=== PATIENT | male | born 1945 | race Caucasian/White ===

== ENCOUNTER → 2017-07-01 | Outpatient (CLI) | payer OTHER, BC ==
[~2017-07-01] MED LIST: ALFU10TA2 PO; ALT5 PO; ASCO1CAP3 PO; ASPI81TA28 PO; ATEN-173 PO; ATOR80TA PO; BACL10TA PO; CHOL400C7 PO; CYAN100T6 PO; FISHOIL PO; GLC500 PO; HYDR1TAB2 PO; INDO75CA PO; ISOS60TA25 PO; METO-157 PO; MULTTAB58 PO; NITR0.4S UT; NSP500 PO; PRLSR20 PO; PYRI100T2 PO; SERT25TA PO; TRIA0.1C20 TOP
--- NOTE | 2017-07-01 14:51 | DIAGNOSTIC IMAGING REPORT ---
LEFT HIP INJECTION UNDER FLUOROSCOPIC GUIDANCE CLINICAL HISTORY: Degenerative joint disease. Steroid injection. PROCEDURE: The risks, benefits, and alternatives to the procedure were discussed with the patient. Written informed consent was obtained. The patient was placed supine on the fluoroscopy table, and a left hip injection was performed under fluoroscopic guidance. The area was prepped and draped in the usual sterile fashion. The skin and soft tissues anesthetized with local 1% lidocaine. The left hip joint was accessed utilizing a 22-gauge needle, and intra-articular positioning was confirmed by injecting a small volume of Optiray 300. The prescribed dosage of 8 cc of 0.5% bupivacaine and 2 cc of betamethasone was then injected into the joint space. The procedure was well tolerated and without immediate complication. The patient left the department in satisfactory condition. FLUOROSCOPY TIME: 7 seconds. IMPRESSION: Successful steroid injection of the left hip under fluoroscopic guidance. Electronically signed by: Gregor Salmeron M.D. 07/01/2017 2:50 PM Dictated Date/Time: 07/01/2017 2:48 PM
== END | disposition home or self-care (01) ==
LOC: C.RADBC 13:49
PROVIDERS: ATTEND Orthopaedic Surgery
DX: M16.12 Unilateral primary osteoarthritis, left hip (principal)

== ENCOUNTER 2017-09-20 12:16 | Emergency (ER) | payer OTHER, BC ==
[~2017-09-20] VITALS: Ht 182.9 cm; Wt 130.0 kg
[2017-09-20 12:26] VITALS: TEMP 36.6; Ht 182.9 cm; Wt 130.0 kg
--- NOTE | 2017-09-20 13:02 | DIAGNOSTIC IMAGING REPORT ---
R TOE(S) MIN 2 VIEWS CLINICAL HISTORY: right 2nd toe pain trauma. Pain. COMPARISON: None. DISCUSSION: Oblique nondisplaced fracture proximal phalanx second toe. No evidence of dislocation. All remaining osseous structures are unremarkable. Mild localized soft tissue edema IMPRESSION: Nondisplaced fracture base proximal phalanx second toe. The above report was generated using voice recognition software. It may contain grammatical, syntax or spelling errors. Electronically signed by: Abel Killian M.D. 09/20/2017 1:00 PM Dictated Date/Time: 09/20/2017 1:00 PM
--- NOTE | 2017-09-20 13:41 | EMERGENCY ROOM VISIT NOTE ---
History First contact with patient: 12:23 Chief Complaint: TOE PAIN, INJURY Stated Complaint: HURT TOE History of Present Illness The patient is a 72 year old male who presents to the Emergency Room via private vehicle accompanied by female with complaints of "heart toe". The patient states that earlier today around 10:30 AM he was at home, when he accidentally struck the recliner with the right second toe. He notes pain since that time that he rates as a 3-4/10. At rest it is a 0. It is sharp with movement. No radiation of pain. He denies any other injury. Of additional note he states that he is to have a left hip replacement with follow- up scheduled in November with Dr. Oakes. Review of Systems A complete 6-point Review of Systems was discussed with the patient, with pertinent positives and negatives listed in the History of Present Illness. All remaining Review of Systems questions can be considered negative unless otherwise specified. Past Medical/Surgical History Medical Problems: (1) GERD (gastroesophageal reflux disease) (2) Sleep apnea Surgical Problems: (1) History of cardiac cath Social History Smoking Status: Former Smoker Marital Status: Housing Status: lives with significant other Occupation Status: retired Current/Historical Medications Scheduled Alfuzosin Hcl (Uroxatral), 10 MG PO DAILY Ascorbic Acid (Vitamin C), 1 CAP PO DAILY Aspirin (Aspirin Ec), 162 MG PO DAILY Atenolol (Tenormin), 25 MG PO BID Atorvastatin (Lipitor), 80 MG PO DAILY Cholecalciferol (Vitamin D 400 Iu), 400 INTER.UNIT PO BID Cyanocobalamin (Vitamin B12 100 Mcg), 100 MCG PO DAILY Fish Oil ([place]-3), 1,000 MG PO BID Hydrocodone/Acetaminophen 5MG/500MG (Lortab 5MG/500MG), 1 TABLET PO Q6HR PRN Indomethacin Ext Rel (Indocin Ext Rel), 75 MG PO DAILY Isosorbide Mononitrate Ext Rel (Imdur Ext Rel), 60 MG PO QAM Metformin HCL (Glucophage *), 1,000 MG PO BID Metoclopramide (Reglan), 10 MG PO HS Multiple Vitamin (Multivitamin), 1 TAB PO DAILY Niacin Ext Rel (Niaspan Ext Rel), 1,000 MG PO HS Nitroglycerin (Nitrostat), 0.4 MG UT PRN Omeprazole (Prilosec), 20 MG PO DAILY Pyridoxine Hcl (Vitamin B6), 100 MG PO BID Ramipril (Altace *), 7.5 MG PO DAILY Sertraline (Zoloft), 25 MG PO DAILY Triamcinolone Acet 0.1% (Aristocort 0.1%), 1 APPLN TOP BID Scheduled PRN Baclofen (Lioresal), 10 MG PO TID PRN for spasms Physical Exam Vital Signs Date Time Temp Pulse Resp B/P (MAP) Pulse Ox O2 Delivery O2 Flow Rate FiO2 09/20/17 14:01 58 16 159/96 95 09/20/17 12:26 36.6 95 18 195/103 95 Room Air Physical Exam VITAL SIGNS - Vital signs and nursing notes were reviewed. Stable. Hypertensive. GENERAL -72-year-old male appearing his stated age who is in no acute distress. Communicates well with provider and answers questions appropriately. SKIN - Without rashes. Skin overlying the patient's right second toe is unremarkable. No deformity noted. EXTREMITIES - No clubbing or peripheral cyanosis. No pretibial edema present. Tenderness overlying the base of the right second toe. No deformity noted. Skin is intact. Tenderness localized to the base. He is neurovascularly intact distally. No other tenderness of the foot. Medical Decision & Procedures ER Provider Diagnostic Interpretation: R TOE(S) MIN 2 VIEWS CLINICAL HISTORY: right 2nd toe pain trauma. Pain. COMPARISON: None. DISCUSSION: Oblique nondisplaced fracture proximal phalanx second toe. No evidence of dislocation. All remaining osseous structures are unremarkable. Mild localized soft tissue edema IMPRESSION: Nondisplaced fracture base proximal phalanx second toe. The above report was generated using voice recognition software. It may contain grammatical, syntax or spelling errors. Electronically signed by: Abel Killian M.D. 09/20/2017 1:00 PM Dictated Date/Time: 09/20/2017 1:00 PM Medical Decision Patient was seen and evaluated as above in room D4. Review was performed of nursing notes and vital signs. After obtaining a thorough history and physical examination the above work up was performed. He presents with a right second toe injury. X-ray was obtained. Results as above. I agree with radiologist he has a nondisplaced proximal right second toe fracture. This was mike taped to the great toe and he was given a postop shoe. He as well as the female who is present with the patient in the room expresses concern that he is unstable on his feet because now he has a scheduled left hip replacement, right knee pain and now a right second toe fracture. He was offered additional ambulating devices such as a walker and declined. He states that he prefers to use his cane. They asked if we could try and expedite his follow-up with Dr. Oakes for the hip. I informed them that our corrections caseworker will call to see if they are able to schedule a sooner appointment however if not, they are to keep that appointment. They are to follow with orthopedics if the toe pain persists however informed him that this should heal well on its own with the mike tape and splint/postop shoe. He was educated upon worrisome symptoms which to return. Blood pressure improved upon recheck. I believe this is likely secondary to situation. The patient was educated upon management, had questions answered prior to discharge, and was discharged home in good condition. Case was discussed with the attending physician. Medication list reviewed. His blood pressure was elevated I believe secondary to situation. He is to follow with the family doctor. In the evaluation and treatment of this patient the following differential diagnoses were entertained: Fracture, dislocation, among others. Impression Primary Impression: Toe fracture, right Departure Information Dispostion Home / Self-Care Condition GOOD Referrals Mick Galo M.D.(FERNANDO) (PCP) Colton Oakes M.D. Patient Instructions My [facility] Additional Instructions You have been treated in the Emergency Department for a toe fracture. For pain control, you can use the following [id number] medicines: - Regular strength (325mg/tab) Tylenol (acetaminophen) 2 tabs every 4-6 hours as needed. Do not exceed 12 tablets in a 24 hour period. Avoid taking more than 3 grams (3000 mg) of Tylenol per day. This includes any other sources of acetaminophen you may take on a regular basis. If this is a recent injury (<24 hrs), ice can be applied to the area of pain for the first 3 days to help decrease pain and inflammation. The toe should heal well with mike tape to the next toe and the shoe. If this becomes an ongoing problem I recommend follow-up with orthopedics. Please call them if this persists. Return to the Emergency Department if your current symptoms worsen despite treatment course outlined above, or if you develop any of the following symptoms : intractable pain despite aforementioned treatment course or new onset of numbness or tingling of the foot.
[2017-09-20 14:01] VITALS: BP 159/96; PULSE 58; O2SAT 95
--- NOTE | 2017-09-20 14:21 | EMERGENCY ROOM VISIT NOTE ---
ED Visit Note First contact with patient: 12:23 The patient was seen and examined with Tobias Ladd PA-C. I agree with the history, physical and findings. Please see the note for disposition and details.
== END 2017-09-20 14:01 | disposition home or self-care (01) ==
LOC: C.EDB 12:16 → C.EDD 14:01
DX: S92.514A Nondisplaced fracture of proximal phalanx of right lesser toe(s), initial encounter for closed fracture (principal); W22.03XA Walked into furniture, initial encounter; Y92.009 Unspecified place in unspecified non-institutional (private) residence as the place of occurrence of the external cause; K21.9 Gastro-esophageal reflux disease without esophagitis; Z87.891 Personal history of nicotine dependence; Z98.890 Other specified postprocedural states; Z79.82 Long term (current) use of aspirin; Z79.899 Other long term (current) drug therapy

== ENCOUNTER 2022-06-19 09:43 | Inpatient (IN) ==
[2022-06-19] MEDS ORDERED: dexAMETHasone**PF** 10 MG/ML VIAL IV ONE (09:59)
[2022-06-19] MEDS ORDERED: SODIUM CHLORIDE 0.9% 1000ML 1,000 ML IV ONE (09:59)
[2022-06-19] MEDS ORDERED: METOPROLOL TARTRATE 1 MG/ML VIAL IV STA ×3 (09:59→12:49)
[2022-06-19] MEDS ORDERED: ALBUT/IPRATROP 3MG/0.5MG NEB 3 ML VIAL NEB ONE (09:59)
--- NOTE | 2022-06-19 10:04 | Emergency Department Note ---
Impression & Plan Atrial fibrillation with rapid ventricular response, Complicated acute bronchitis, Persistent cough, Hypomagnesemia ED Provider Note Name: BRADEN MILLER Age: 76 Sex: M Arrives Via: Walk-In Informant: Patient, daughter ED Provider: David Reyna MD Chief Complaint: Illness Impression: As per impressions above Medical Decision Makin-year-old gentleman with history of COPD, PAF, CAD amongst other past medical history arrives for evaluation of worsening cough and congestion and now tachycardia. On arrival patient with diffusely tight lung sounds and wheezing and tachycardic regular rate. He is in A. fib RVR on EKG. He has been sick for the last 2 weeks. Blood cultures and lactic acid obtained. Initial labs not consistent with sepsis. Chest x-ray does not show a large lobar infiltrate. He was given a prolonged DuoNeb with vast improvement in his breathing though still has some wheezing. He is remained quite tachycardic following the DuoNeb even an hour later. He was given 3 rounds of IV Lopressor with mild improvement in his heart rate. He is not having any active chest pain his troponin is normal I do not think that emergent cardioversion is necessary. He was given empiric antibiotics given the cough has been ongoing for over 2 weeks and he has a COPD history thus he is a complicated bronchitis. He is already anticoagulated I do not think that this is consistent with a PE and CTA of the chest would not be indicated. Patient was treated with some IV magnesium given low mag in the setting of persistent A. fib RVR. This was consulted for further management. Patient does not have severe sepsis or septic shock at this time. He was given a liter bolus of IV fluids but given concern for further fluid overload and an elevated BNP no further fluids bolus was given. Prior Medical Record and Triage/Nursing Notes reviewed by Me Chart reviewed by me includes last May as orthopedic evaluations as well as July 2021 pain management evaluation. Differentials:COPD exacerbation, pneumonia, CHF, A. fib RVR, ACS, electrolyte imbalance, viral infection, multiple other pathologies considered. Vital Signs: reviewed and remarkable for tachycardia Interventions: DuoNeb 1 hour, Lopressor 5 mg IV x3, magnesium 1 g IV, 1 L normal saline IV Labs:Reviewed and remarkable for mildly elevated BNP, low magnesium, mild white blood cell count elevation mild below bicarb, hyperglycemia Imagin view chest x-ray reveals no lobar infiltrate as per my interpretation. EKG:Per My Interpretation: Indication Shortness of breath. Atrial fibrillation with rapid ventricular response at 116 bpm and a QTC of 455. There are PVC noted. When compared to an EKG of January 19, 2010 his previous normal sinus rhythm has become A. fib RVR. Cardiac/Tele Monitoring: Cardiac Monitoring: An Order was placed for continuous cardiac monitoring. The monitor shows a rate of 110 with a afib rvr rhythm. Consults:Vikki hospitalist Plan: Disposition:Hospitalization. Condition: Good History of Present Illness:76-year-old gentleman arrives for evaluation of illness. Patient has been sick for the last 2 weeks. Initially with runny nose mild cough which has progressed to feeling short of breath productive cough and generalized aches and pains. Started on prednisone a few days ago. He does have a history of COPD. He has been using inhaler without much improvement. He also has been using cough syrup at evening due to inability even sleep due to the coughing. Symptoms continue to worsen and thus comes into the ER for evaluation. Daughter notes he is making loud wheezing as he walks around the room. No falls, trauma, injuries. Denies any specific chest pain, abdominal pain, back pain, nausea, vomiting, feeling palpitations, urinary/bowel symptoms or other concerning signs or symptoms. Prednisone last few days and breathing treatments have not helped with symptoms. Past History:COPD, PAF on Eliquis, CAD, hypertension, dyslipidemia, APRYL, diabetes, CKD, GERD Home Medications:See Below Allergies:quinalones, sulfa Vitals:Blood Pressure: 146/72, Pulse 122, RR 20, T 37.2C, O2 93% on RA Physical Exam: GENERAL: Patient is tired appearing and in mild distress. EYES: No scleral icterus, unremarkable pupils. ENT: Mucous membranes dry, no nasal congestion. NECK: No masses appreciated, nomeningismus, trachea is midline. RESPIRATORY: Diffusely tight lung sounds with expiratory wheezing and junky crackles throughout the left lung CARDIOVASCULAR: Tachy.No murmurs, rubs, gallops appreciated. GASTROINTESTINAL: Abdomen soft, non-tender, no peritonitis.Bowel sounds positive.No masses appreciated. EXTREMITIES: Normal motion all extremities, no cyanosis, no edema. NEUROLOGIC: Alert and oriented, no focal neurologic deficits appreciated SKIN: No rash, no jaundice, no diaphoresis. PSYCH: Appropriate GCS: 15 ED Course: Times/Reassessments: Patient's heart rate initially improved with initial bolus of Lopressor though started creeping back up following prolonged nebulizer. His breathing is improved though is still quite wheezy. Heart rates continued to increase and thus further Lopressor was given. Patient and his daughter both comfortable plan for his hospitalization. Critical Care: I have personally spent 45 minutes of critical care time in the direct management of this patient. Afib RVR requiring 3 rounds Lopressor IV. This was a life/limb threatening event. This 45 minutes is in excess of all separately billable procedures. David Reyna MD Past Med/Surg History Medical History Anxiety CAD (coronary artery disease) Chronic prostatitis CKD (chronic kidney disease), stage III Diabetes mellitus, type II GERD (gastroesophageal reflux disease) HLD (hyperlipidemia) HTN (hypertension) APRYL on CPAP Permanent atrial fibrillation Sacroiliac joint pain Sleep apnea Spinal stenosis of lumbar region Surgical History History of total left hip arthroplasty S/P coronary artery stent placement "2006" S/P spinal surgery "2000" Family History Father Prostate cancer Stroke Mother Stroke Social History Smoking Status: Never smoker Tobacco Type: Cigarettes packs per day: 20; Hx Alcohol Use: Yes Alcohol type: hard liquor Hx Substance Use: No Preferred Language: Polish Communication Ability: Effective Buckle Stringer Required: No Beliefs That Will Affect Care: None marital status: / Current Living Situation: Alone Other Information That Helps Us Care for You: No Feels Safe at Home: Yes Safety Concerns: Feels Safe At This Time Assistive Devices: Cane and Glasses Allergies Allergies Allergy/AdvReac Type Severity Reaction Status Date / Time Quinolones Allergy Mild difficultly Verified 08/19/21 08:46 breathing Sulfa (Sulfonamide Allergy Mild hives and Verified 08/19/21 08:46 Antibiotics) throat swelling Home Meds Home Medications Medication Instructions Recorded Confirmed alfuzosin 10 mg tablet,extended 10 mg PO DAILY 12/19/20 06/19/22 release 24 hr aspirin 81 mg tablet,delayed 81 mg PO DAILY 12/19/20 06/19/22 release (Adult Aspirin Regimen) atorvastatin 80 mg tablet 80 mg PO DAILY 12/19/20 06/19/22 finasteride 5 mg tablet 5 mg PO DAILY 12/19/20 06/19/22 fluocinonide 0.05 % topical cream 1 applic topical BID 12/19/20 06/19/22 hydrocodone 5 mg-acetaminophen 325 1 tab PO Q6H PRN Pain 12/19/20 06/19/22 mg tablet isosorbide mononitrate 60 mg 60 mg PO DAILY 12/19/20 06/19/22 tablet,extended release 24 hr metformin 500 mg tablet,extended 500 mg PO BID 12/19/20 06/19/22 release 24hr nitroglycerin 0.4 mg sublingual 0.4 mg sublingual Q5M PRN Chest 12/19/20 0 06/19/22 tablet Pain omeprazole 20 mg capsule,delayed 20 mg PO DAILY 12/19/20 06/19/22 release sertraline 50 mg tablet 50 mg PO DAILY 12/19/20 06/19/22 CoQ-10 1 tab PO DAILY 06/19/22 06/19/22 apixaban 5 mg tablet (Eliquis) 5 mg PO BID 06/19/22 06/19/22 cyanocobalamin (vitamin B-12) 1,000 mcg PO DAILY 06/19/22 06/19/22 1,000 mcg tablet dulaglutide 4.5 mg/0.5 mL 4.5 mg subcut WK 06/19/22 06/19/22 subcutaneous pen injector (Trulicity) empagliflozin 25 mg tablet 25 mg PO DAILY 06/19/22 06/19/22 (Jardiance) fexofenadine 180 mg tablet 180 mg PO DAILY PRN Allergic 06/19/22 06/19/22 Symptoms insulin glargine 100 unit/mL (3 15 unit subcut [facility] 06/19/22 06/19/22 mL) subcutaneous pen lisinopril 2.5 mg tablet 2.5 mg PO DAILY 06/19/22 06/19/22 metoprolol succinate 50 mg 50 mg PO DAILY 06/19/22 06/19/22 tablet,extended release 24 hr semaglutide 7 mg tablet (Rybelsus) 7 mg PO DAILY 06/19/22 06/19/22 tiotropium bromide 18 mcg capsule 1 cap inhalation DAILY 06/19/22 06/19/22 with inhalation device (Spiriva with HandiHaler) Results & Data (ED) Vital Signs Vital Signs - 24 hr 06/19/22 09:46 06/19/22 10:34 06/19/22 11:00 Temperature 37.2 C Temperature Source Oral Pulse Rate 122 H 121 H Pulse Rate [Apical] 103 H Respiratory Rate 20 18 Respiratory Effort / Characteristics Non-Labored Respiratory Depth Normal Blood Pressure 146/72 H 145/82 H Blood Pressure [Right Arm] 126/78 Blood Pressure Mean 96 Blood Pressure Mean [Right Arm] 94 Pulse Oximetry 93 95 Oxygen Delivery Method Room Air Room Air Sepsis Recent Fever Within 48 Hours No Sepsis New/Unexplained Change in Mental Status No Sepsis Action Taken by Nursing No Action Required 06/19/22 11:08 06/19/22 12:32 06/19/22 12:45 Temperature Temperature Source Pulse Rate 132 H Pulse Rate [Apical] 104 H 136 H Respiratory Rate 18 16 Respiratory Effort / Characteristics Non-Labored Spontaneous Non-Labored Respiratory Depth Normal Blood Pressure 114/61 Blood Pressure [Right Arm] 121/75 Blood Pressure Mean Blood Pressure Mean [Right Arm] 90 Pulse Oximetry 95 94 Oxygen Delivery Method Room Air Room Air Sepsis Recent Fever Within 48 Hours Sepsis New/Unexplained Change in Mental Status Sepsis Action Taken by Nursing 06/19/22 13:00 Temperature Temperature Source Pulse Rate Pulse Rate [Apical] 126 H Respiratory Rate 16 Respiratory Effort / Characteristics Non-Labored Respiratory Depth Normal Blood Pressure Blood Pressure [Right Arm] 96/64 L Blood Pressure Mean Blood Pressure Mean [Right Arm] 74 Pulse Oximetry 94 Oxygen Delivery Method Room Air Sepsis Recent Fever Within 48 Hours Sepsis New/Unexplained Change in Mental Status Sepsis Action Taken by Nursing Laboratory Data 06/19/22 10:38 06/19/22 10:38 Lab Results 06/19/22 06/19/22 06/19/22 Range/Units 10:38 10:38 10:38 WBC 13.66 H (4.8-10.8) K/ul RBC 4.66 L (4.70-6.10) M/uL Hgb 14.2 (14.0-18.0) g/dl Hct 42.0 (42.0-52.0) % MCV 90.1 (80.0-100.0) fL MCH 30.5 (25.0-34.0) pg MCHC 33.8 (32.0-36.0) g/dL RDW Std Deviation 44.9 (36.4-46.3) fL RDW Coeff of [place] 13.5 (11.5-14.5) % Plt Count 247 (130-400) K/uL MPV 9.6 (9.4-12.4) fL Immature Gran % (Auto) 0.6 % Neut % (Auto) 80.1 % Lymph % (Auto) 5.6 % [place] % (Auto) 13.3 % Eos % (Auto) 0.1 % Baso % (Auto) 0.3 % Neut # (Auto) 10.94 H (1.40-6.50) K/uL Lymph # (Auto) 0.76 L (1.2-3.4) K/uL [place] # (Auto) 1.82 H (0.11-0.59) K/uL Eos # (Auto) 0.02 (0-0.50) K/uL Baso # (Auto) 0.04 (0-0.2) K/uL Immature Gran # (Auto) 0.08 (0.01-0.20) K/uL PT INR Sodium (136-145) mmol/L Potassium (3.5-5.1) mmol/L Chloride (98-107) mmol/L Carbon Dioxide (21-32) mmol/L Anion Gap (3-11) BUN (6-23) mg/dl Creatinine (0.6-1.4) mg/dl Est Cr Clr Drug Dosing ml/min Est GFR ( Amer) ml/min Est GFR (Non-Af Amer) ml/min BUN/Creatinine Ratio (10-20) Glucose (70-99(Fasting)) mg/dl Lactate 1.6 (0.4-2.0) mmol/L Calcium (8.5-10.1) mg/dl Magnesium (1.7-2.4) mg/dl Total Bilirubin (0.2-1.0) mg/dl Direct Bilirubin (0-0.2) mg/dl AST (13-39) U/L ALT (7-52) U/L Alkaline Phosphatase (34-104) U/L Troponin I High Sens (0-20) pg/ml B-Natriuretic Peptide 389 H (0-100) pg/ml Total Protein (6.0-8.3) gm/dl Albumin (3.4-5.0) gm/dl SARS-CoV-2 (PCR) (Negative) Influenza Type A (PCR) (Neg) Influenza Type B (PCR) (Neg) RSV (RT-PCR) (Neg) 06/19/22 06/19/22 06/19/22 Range/Units 10:38 10:38 10:38 WBC (4.8-10.8) K/ul RBC (4.70-6.10) M/uL Hgb (14.0-18.0) g/dl Hct (42.0-52.0) % MCV (80.0-100.0) fL MCH (25.0-34.0) pg MCHC (32.0-36.0) g/dL RDW Std Deviation (36.4-46.3) fL RDW Coeff of [place] (11.5-14.5) % Plt Count (130-400) K/uL MPV (9.4-12.4) fL Immature Gran % (Auto) % Neut % (Auto) % Lymph % (Auto) % [place] % (Auto) % Eos % (Auto) % Baso % (Auto) % Neut # (Auto) (1.40-6.50) K/uL Lymph # (Auto) (1.2-3.4) K/uL [place] # (Auto) (0.11-0.59) K/uL Eos # (Auto) (0-0.50) K/uL Baso # (Auto) (0-0.2) K/uL Immature Gran # (Auto) (0.01-0.20) K/uL PT Cancelled INR Cancelled Sodium 136 (136-145) mmol/L Potassium 3.7 (3.5-5.1) mmol/L Chloride 107 (98-107) mmol/L Carbon Dioxide 17 L (21-32) mmol/L Anion Gap 12 H (3-11) BUN 21 (6-23) mg/dl Creatinine 1.20 (0.6-1.4) mg/dl Est Cr Clr Drug Dosing 67.7 ml/min Est GFR ( Amer) 68.1 ml/min Est GFR (Non-Af Amer) 58.8 ml/min BUN/Creatinine Ratio 17.5 (10-20) Glucose 215 H (70-99(Fasting)) mg/dl Lactate (0.4-2.0) mmol/L Calcium 9.0 (8.5-10.1) mg/dl Magnesium 1.5 L (1.7-2.4) mg/dl Total Bilirubin 1.2 H (0.2-1.0) mg/dl Direct Bilirubin 0.2 (0-0.2) mg/dl AST 14 (13-39) U/L ALT 14 (7-52) U/L Alkaline Phosphatase 60 (34-104) U/L Troponin I High Sens 13.6 (0-20) pg/ml B-Natriuretic Peptide (0-100) pg/ml Total Protein 6.7 (6.0-8.3) gm/dl Albumin 3.7 (3.4-5.0) gm/dl SARS-CoV-2 (PCR) NEGATIVE (Negative) Influenza Type A (PCR) Negative (Neg) Influenza Type B (PCR) Negative (Neg) RSV (RT-PCR) Negative (Neg) 06/19/22 Range/Units 11:18 WBC (4.8-10.8) K/ul RBC (4.70-6.10) M/uL Hgb (14.0-18.0) g/dl Hct (42.0-52.0) % MCV (80.0-100.0) fL MCH (25.0-34.0) pg MCHC (32.0-36.0) g/dL RDW Std Deviation (36.4-46.3) fL RDW Coeff of [place] (11.5-14.5) % Plt Count (130-400) K/uL MPV (9.4-12.4) fL Immature Gran % (Auto) % Neut % (Auto) % Lymph % (Auto) % [place] % (Auto) % Eos % (Auto) % Baso % (Auto) % Neut # (Auto) (1.40-6.50) K/uL Lymph # (Auto) (1.2-3.4) K/uL [place] # (Auto) (0.11-0.59) K/uL Eos # (Auto) (0-0.50) K/uL Baso # (Auto) (0-0.2) K/uL Immature Gran # (Auto) (0.01-0.20) K/uL PT 11.7 INR 1.1 Sodium (136-145) mmol/L Potassium (3.5-5.1) mmol/L Chloride (98-107) mmol/L Carbon Dioxide (21-32) mmol/L Anion Gap (3-11) BUN (6-23) mg/dl Creatinine (0.6-1.4) mg/dl Est Cr Clr Drug Dosing ml/min Est GFR ( Amer) ml/min Est GFR (Non-Af Amer) ml/min BUN/Creatinine Ratio (10-20) Glucose (70-99(Fasting)) mg/dl Lactate (0.4-2.0) mmol/L Calcium (8.5-10.1) mg/dl Magnesium (1.7-2.4) mg/dl Total Bilirubin (0.2-1.0) mg/dl Direct Bilirubin (0-0.2) mg/dl AST (13-39) U/L ALT (7-52) U/L Alkaline Phosphatase (34-104) U/L Troponin I High Sens (0-20) pg/ml B-Natriuretic Peptide (0-100) pg/ml Total Protein (6.0-8.3) gm/dl Albumin (3.4-5.0) gm/dl SARS-CoV-2 (PCR) (Negative) Influenza Type A (PCR) (Neg) Influenza Type B (PCR) (Neg) RSV (RT-PCR) (Neg) Administered Medications Apixaban (Apixaban 5 Mg Tablet) 5 mg PO BID GRACIELA Stop: 07/19/22 20:59 Last Admin: 06/19/22 19:32 Dose: 5 mg Documented By: AMM Fluticasone Propionate (Fluticasone Propionate Na Spr 16 Gm Btl) 2 sprays NA HS GRACIELA Stop: 07/19/22 20:59 Last Admin: 06/19/22 19:31 Dose: 2 sprays Documented By: AMM Guaifenesin (Guaifenesin 600 Mg Tabcr) 600 mg PO Q12 GRACIELA Stop: 07/19/22 20:59 Last Admin: 06/19/22 19:32 Dose: 600 mg Documented By: RAFAEL Guaifenesin/Codeine Phosphate (Guaifenesin/Codeine 200mg/20mg 10ml Udc) 10 ml PO HS [facility] Stop: 07/19/22 20:59 Last Admin: 06/19/22 20:19 Dose: 10 ml Documented By: RAFAEL Insulin Aspart (Insulin Aspart Per Unit) 0 units SC ACHS [facility] Stop: 07/19/22 16:29 Last Admin: 06/19/22 20:12 Dose: 2 units Documented By: RAFAEL Co-signed By: AMRIT Admin: 06/19/22 17:11 Dose: 19 units Documented By: TRESSA Co-signed By: SYDNEE Levalbuterol HCl (Levalbuterol Hcl 0.63 Mg/3 Ml Neb) 0.63 mg NEB Q6R [facility]; Protocol Stop: 07/19/22 18:59 Last Admin: 06/20/22 05:17 Dose: 0.63 mg Documented By: Admin: 06/20/22 00:29 Dose: 0.63 mg Documented By: Admin: 06/19/22 18:07 Dose: 0.63 mg Documented By: AYO Metoprolol Tartrate (Metoprolol Tartrate 1 Mg/Ml Vial) 5 mg IV Q6H PRN PRN Reason: tachycardia, HR > 120 Stop: 07/19/22 15:51 Last Admin: 06/20/22 00:19 Dose: 5 mg Documented By: Admin: 06/20/22 00:16 Dose: 5 mg Documented By: RAFAEL Metoprolol Tartrate (Metoprolol Tartrate 25 Mg Tab) 25 mg PO QID [facility] Stop: 07/19/22 16:59 Last Admin: 06/19/22 19:32 Dose: 25 mg Documented By: Admin: 06/19/22 17:39 Dose: 25 mg Documented By: TRESSA Discontinued Medications Albuterol (Albut/Ipratrop 3mg/0.5mg Neb 3 Ml Vial) 12 ml NEB ONE ONE; Protocol Stop: 06/19/22 10:00 Last Admin: 06/19/22 11:08 Dose: 12 ml Documented By: JOSE F Dexamethasone Sodium Phosphate (DexamethasonePf 10 Mg/Ml Vial) 10 mg IV NOW ONE Stop: 06/19/22 10:00 Last Admin: 06/19/22 10:38 Dose: 10 mg Documented By: LEVON Diltiazem HCl (Diltiazem Hcl 5 Mg/Ml 5 Ml Vial) 15 mg IV NOW STA Stop: 06/20/22 01:36 Last Admin: 06/20/22 01:57 Dose: 15 mg Documented By: RAFAEL Co-signed By: DAISY Sodium Chloride (Nss 1000ml) 1,000 mls @ 999 mls/hr IV .Q1H1M ONE Stop: 06/19/22 10:59 Last Infusion: 06/19/22 13:40 Dose: 0 mls/hr Documented By: Admin: 06/19/22 10:40 Dose: 999 mls/hr Documented By: LEVON Magnesium Sulfate/Dextrose (Magnesium Sulfate / D5w) 1 gm in 100 mls @ 100 mls/hr IV NOW STA Stop: 06/19/22 13:38 Last Infusion: 06/19/22 17:47 Dose: 0 mls/hr Documented By: Admin: 06/19/22 13:34 Dose: 100 mls/hr Documented By: ANJELICA Azithromycin 500 mg/ Dextrose 255 mls @ 125 mls/hr IV ONE ONE Stop: 06/19/22 14:41 Last Infusion: 06/19/22 17:46 Dose: 0 mls/hr Documented By: Admin: 06/19/22 14:05 Dose: 125 mls/hr Documented By: ANJELICA Ceftriaxone Sodium (Rocephin) 2,000 mg in 70 mls @ 140 mls/hr IV NOW STA Stop: 06/19/22 13:08 Last Infusion: 06/19/22 13:40 Dose: 0 mls/hr Documented By: Admin: 06/19/22 12:58 Dose: 140 mls/hr Documented By: ANJELICA Magnesium Sulfate/Dextrose (Magnesium Sulfate / D5w) 1 gm in 100 mls @ 50 mls/hr IV ONE ONE Stop: 06/19/22 17:51 Last Infusion: 06/19/22 19:43 Dose: 0 mls/hr Documented By: Admin: 06/19/22 16:48 Dose: 50 mls/hr Documented By: TRESSA Lactated Ringer's (Lr) 1,000 mls @ 200 mls/hr IV .Q5H ONE Stop: 06/20/22 06:35 Last Infusion: 06/20/22 06:44 Dose: 0 mls/hr Documented By: Admin: 06/20/22 01:57 Dose: 200 mls/hr Documented By: RAFAEL Metoprolol Tartrate (Metoprolol Tartrate 1 Mg/Ml Vial) 5 mg IV NOW STA Stop: 06/19/22 10:00 Last Admin: 06/19/22 10:34 Dose: 5 mg Documented By: Metoprolol Tartrate (Metoprolol Tartrate 1 Mg/Ml Vial) 5 mg IV NOW STA Stop: 06/19/22 12:28 Last Admin: 06/19/22 12:32 Dose: 5 mg Documented By: Metoprolol Tartrate (Metoprolol Tartrate 1 Mg/Ml Vial) 5 mg IV NOW STA Stop: 06/19/22 12:50 Last Admin: 06/19/22 12:58 Dose: 5 mg Documented By: ANJELICA Potassium Chloride (Potassium Chloride Crtab 20 Meq Tabcr) 40 meq PO NOW STA Stop: 06/19/22 13:56 Last Admin: 06/19/22 14:39 Dose: 40 meq Documented By: ANJELICA Imaging Data Radiologist's Impression: Chest X-Ray 06/19/22 10:00 XR chest 1V portable HISTORY: Shortness of breath COMPARISON: Chest 01/19/2010. FINDINGS: The cardiac silhouette remains mildly enlarged. The lungs are clear. No pleural effusions. No pneumothorax. No evidence for pulmonary edema. IMPRESSION: No significant change compared to the prior study. No acute process. ACT 112: Negative or not required by law. Electronically signed by: Chester Coles M.D. 06/19/2022 10:35 AM Discharge Plan Visit Data Chief Complaint: Congestion Stated Complaint: CONGESTION ED Provider: David Reyna Discharge Problem: Atrial fibrillation with rapid ventricular response, Complicated acute bronchitis, Persistent cough, Hypomagnesemia Patient Disposition: Admitted As Inpatient Discharge Instructions Interventions: ED Discharge Assessment Last Done: 06/19/22 14:46
--- NOTE | 2022-06-19 10:37 | XRay Report ---
XR chest 1V portable HISTORY: Shortness of breath COMPARISON: Chest 01/19/2010. FINDINGS: The cardiac silhouette remains mildly enlarged. The lungs are clear. No pleural effusions. No pneumothorax. No evidence for pulmonary edema. IMPRESSION: No significant change compared to the prior study. No acute process. ACT 112: Negative or not required by law. Electronically signed by: Chester Coles M.D. 06/19/2022 10:35 AM
[2022-06-19 10:46] LABS: Basophils # (auto) 0.04 K/uL (0-0.2); Basophils % (auto) 0.3 %; Eosinophils # (auto) 0.02 K/uL (0-0.50); Eosinophils % (auto) 0.1 %; Hemoglobin 14.2 g/dl (14.0-18.0); Immature Granulocytes # (auto) 0.08 K/uL (0.01-0.20); Immature Granulocytes % (auto) 0.6 %; Lymphocytes # (auto) 0.76 K/uL (1.2-3.4); Lymphocytes % (auto) 5.6 %; Mean Corpuscular Hemoglobin 30.5 pg (25.0-34.0); Mean Corpuscular Hgb Conc 33.8 g/dL (32.0-36.0); Mean Corpuscular Volume 90.1 fL (80.0-100.0); Mean Platelet Volume 9.6 fL (9.4-12.4); Monocytes # (auto) 1.82 K/uL (0.11-0.59); Monocytes % (auto) 13.3 %; Neutrophils # (auto) 10.94 K/uL (1.40-6.50); Neutrophils % (auto) 80.1 %; Platelet Count 247 K/uL (130-400); RDW Coefficient of Variation 13.5 % (11.5-14.5); RDW Standard Deviation 44.9 fL (36.4-46.3); Red Blood Count 4.66 M/uL (4.70-6.10); White Blood Count 13.66 K/ul (4.8-10.8)
[2022-06-19 11:16] LABS: Troponin I High Sensitivity 13.6 pg/ml (0-20)
[2022-06-19 11:46] LABS: INR 1.1 (0.9-1.1); Prothrombin Time 11.7 Seconds (9.0-12.0)
[2022-06-19 11:49] LABS: Influenza A virus by PCR Negative (Neg); Influenza B virus by PCR Negative (Neg); RSV by PCR Negative (Neg); SARS CoV2 RNA(COVID-19) Ceph NEGATIVE (Negative)
[2022-06-19 12:29] LABS: Albumin Level 3.7 gm/dl (3.4-5.0); Bilirubin Direct 0.2 mg/dl (0-0.2); Bilirubin,Total 1.2 mg/dl (0.2-1.0); Magnesium 1.5 mg/dl (1.7-2.4); Potassium 3.7 mmol/L (3.5-5.1)
[2022-06-19 12:35] LABS: BUN Creatinine Ratio 17.5 (10-20); Creatinine Clr Calc Pharmacy 67.7 ml/min; Est GFR (African American) 68.1 ml/min; Est GFR (Non-African American) 58.8 ml/min; Total Protein 6.7 gm/dl (6.0-8.3)
[2022-06-19] MEDS ORDERED: MAGNESIUM SULFATE / D5W 1 GM/100 ML BAG IV STA (12:39)
[2022-06-19] MEDS ORDERED: AZITHROMYCIN 500 MG in DEXTROSE 5% 250 ML IV ONE (12:39)
[2022-06-19] MEDS ORDERED: cefTRIAXone SODIUM 2,000 MG/70 ML BAG IV STA (12:39)
--- NOTE | 2022-06-19 13:13 | History & Physical Report ---
Date of Service June 19, 2022 Assessment & Plan (1) COPD exacerbation: (2) Atrial fibrillation with rapid ventricular response: (3) Hypomagnesemia: (4) Diabetes mellitus, type II: (5) CAD (coronary artery disease): (6) HTN (hypertension): (7) APRYL on CPAP: Plan This is a 76-year-old male who has significant past medical history of CAD with history of bare-metal stent to LAD in 2006, HTN, HLD, APRYL on CPAP, COPD, former tobacco abuser, permanent A. fib anticoagulated, insulin-dependent T2DM, CKD stage III, chronic prostatitis who presents to ED secondary to URI symptoms for 10 days. Upper/Lower URI COPD Exacerbation Admit to tele Continue Azithromycin (received 500mg IV in ED), will continue 250mg daily for 4 more days Prednisone 40mg daily x 5 days ( received 3 doses as outpatient) pulmonary toilet with ipratropium nebs, muccinex, flutter valve, incentive spirometer oxygen as needed fluticasone nasal spray at HS levalbuterol q6h avoid albuterol/decongestant products given tachycardia if able Atrial fibrillation with RVR Permanent atrial fibrillation Received 5 mg IV Lopressor x3 in ED Heart rates likely exacerbated by hour-long albuterol as well as outpatient oral prednisone and decongestant products Will monitor closely on telemetry Continue Eliquis and metoprolol succinate, prn IV Lopressor Consult cardiology Recent echo 02/2022 revealed preserved EF of 55%, moderately enlarged left atrium and aortic valve sclerosis keep K > 4 and Mag > 2; replete Hypomagnesemia mag 1.5 received 1g mag sulfate in ED will order 1g additional to maintain mag > 2.0 Leukocytosis no signs of true infection azithromycin 2/2 copd exac likely 2/2 steroids, monitor T2DM, insulin-dependent with hyperglycemia Last A1c 02/2022 was 9.2 Obtain A1c in a.m. Lantus/NovoLog per protocol, consult with pharmacy with use of steroid Hold metformin, Rybelsus, Januvia and Trulicity CAD, hx of PCI to LAD with BMS in 2006 HTN HLD Continue ASA, statin, Imdur, metoprolol and lisinopril No chest pain or shortness of breath Blood pressure on lower side, likely in setting of IV Lopressor Monitor closely CKD -3a bun/cr stable monitor APRYL on CPAP DVT ppx: Eliquis Dispo: pcu 2/2 afib rvr and uncontrolled rates in setting of perm afib FULL CODE PCP: Robi Pt was seen and examined in collaboration with Dr. Hicks, please see addendum A total of 75 minutes were spent with greater than 50% of that time face to face with the patient, personally reviewing all current laboratories, imaging studies, past medication reconciliation, outpatient chart review, and discussion with specialists to collaborate care for the patient with attending. Please see attending documentation for corrections and/or additions. Pt Daughter Allie, , would like updates if not present. History of Present Illness Chief Complaint: URI sx x 10 days. Primary Care Provider: Kartik Rosenbaum DO This is a 76-year-old male who has significant past medical history of CAD with history of bare-metal stent to LAD in 2006, HTN, HLD, APRYL on CPAP, COPD, former tobacco abuser, permanent A. fib anticoagulated, insulin-dependent T2DM, CKD stage III, chronic prostatitis who presents to ED secondary to URI symptoms for 10 days. He was evaluated via telemedicine on 06/16/2022 secondary to URI symptoms that started on 06/09. He does admit to having a fever 100.5, chills, rhinorrhea, postnasal drip, sore throat, productive cough with increased shortness of breath and wheezing Per OP notes. He was diagnosed with a COPD exacerbation started on Mucinex, albuterol, 5 days of prednisone. Due to symptoms not improving he then presented to ED today. In ED patient was found to be in A. fib with RVR. His lab work was significant for leukocytosis at 13.66k,, BUN/creatinine 21 and 1.20, magnesium 1.5, glucose 215 and mildly elevated BNP at 389. His influenza, RSV and SARS-CoV-2 were negative. He did r eceive nebulizer treatment as well as IV dexamethasone. He was also started on ceftriaxone and azithromycin for treatment for community-acquired pneumonia. He does have known history of atrial fibrillation however his rate was uncontrolled in ED. According to nurse he also had an hour-long nebulizer treatment which spiked his heart rates from high 90s to 130s. He did receive 3 doses of IV Lopressor 5 mg. He states he took 4 days of prednisone, Robitussin with, muccinex dm and regular muccinex, APAP & albuterol inhaler. He is taking it tid. He does not feel improved. He also tried tessalon Perles with minimal relief. He complained of chills, chest congestion, prod cough with green sputum, fatigue and SOB. He had a bad night last night. He could not sleep. He c/o choking and coughing. He denies leg edema or orthopnea. He denies chest pain, palpitations, documented fever, sweats, lightheaded, dizziness, n/v/d, abd pain or change in urinary habits. Allergies Allergy/AdvReac Type Severity Reaction Status Date / Time Quinolones Allergy Mild difficultly Verified 08/19/21 08:46 breathing Sulfa (Sulfonamide Allergy Mild hives and Verified 08/19/21 08:46 Antibiotics) throat swelling Home Medications Medication Instructions Recorded Confirmed Type alfuzosin 10 mg tablet,extended 10 mg PO DAILY 12/19/20 06/19/22 History release 24 hr aspirin 81 mg tablet,delayed 81 mg PO DAILY 12/19/20 06/19/22 History release (Adult Aspirin Regimen) atorvastatin 80 mg tablet 80 mg PO DAILY 12/19/20 06/19/22 History finasteride 5 mg tablet 5 mg PO DAILY 12/19/20 06/19/22 History fluocinonide 0.05 % topical cream 1 applic topical BID 12/19/20 06/19/22 History hydrocodone 5 mg-acetaminophen 325 1 tab PO Q6H PRN Pain 12/19/20 06/19/22 History mg tablet isosorbide mononitrate 60 mg 60 mg PO DAILY 12/19/20 06/19/22 History tablet,extended release 24 hr metformin 500 mg tablet,extended 500 mg PO BID 12/19/20 06/19/22 History release 24hr nitroglycerin 0.4 mg sublingual 0.4 mg sublingual Q5M PRN Chest 12/19/20 06/19/22 History tablet Pain omeprazole 20 mg capsule,delayed 20 mg PO DAILY 12/19/20 06/19/22 History release sertraline 50 mg tablet 50 mg PO DAILY 12/19/20 06/19/22 History CoQ-10 1 tab PO DAILY 06/19/22 06/19/22 History apixaban 5 mg tablet (Eliquis) 5 mg PO BID 06/19/22 06/19/22 History cyanocobalamin (vitamin B-12) 1,000 mcg PO DAILY 06/19/22 06/19/22 History 1,000 mcg tablet dulaglutide 4.5 mg/0.5 mL 4.5 mg subcut WK 06/19/22 06/19/22 History subcutaneous pen injector (Trulicity) empagliflozin 25 mg tablet 25 mg PO DAILY 06/19/22 06/19/22 History (Jardiance) fexofenadine 180 mg tablet 180 mg PO DAILY PRN Allergic 06/19/22 06/19/22 History Symptoms insulin glargine 100 unit/mL (3 15 unit subcut AMHS 06/19/22 06/19/22 History mL) subcutaneous pen lisinopril 2.5 mg tablet 2.5 mg PO DAILY 06/19/22 06/19/22 History metoprolol succinate 50 mg 50 mg PO DAILY 06/19/22 06/19/22 History tablet,extended release 24 hr semaglutide 7 mg tablet (Rybelsus) 7 mg PO DAILY 06/19/22 06/19/22 History tiotropium bromide 18 mcg capsule 1 cap inhalation DAILY 06/19/22 06/19/22 History with inhalation device (Spiriva with HandiHaler) Past Med/Surg History Medical History (Updated 06/19/22 @ 14:28 by Xiomara Bertrand PA-C) Anxiety CAD (coronary artery disease) Chronic prostatitis CKD (chronic kidney disease), stage III Diabetes mellitus, type II GERD (gastroesophageal reflux disease) HLD (hyperlipidemia) HTN (hypertension) APRYL on CPAP Permanent atrial fibrillation Sacroiliac joint pain Sleep apnea Spinal stenosis of lumbar region Surgical History (Updated 06/19/22 @ 14:27 by Xiomara Bertrand PA-C) History of total left hip arthroplasty S/P coronary artery stent placement "2006" S/P spinal surgery "2000" Family History (Updated 06/19/22 @ 13:39 by Xiomara Bertrand PA-C) Father Prostate cancer Stroke Mother Stroke Social History (Updated 06/19/22 @ 13:39 by Xiomara L. Zapsky, PA-C) Smoking Status: Former smoker Tobacco Type: Cigarettes packs per day: 20; Hx Alcohol Use: No Hx Substance Use: No Preferred Language: [place] Communication Ability: Effective marital status: / Feels Safe at Home: Yes Review of Systems Review of Systems: All systems reviewed & are unremarkable except as noted in HPI & below Physical Exam Physical Exam: please refer to Dr. Hicks addendum for physical exam findings Results & Data Results & Data ([place]) Vital Signs (Past 12 Hours) Vital Signs Temp Pulse Pulse Resp BP BP Pulse Ox 06/19/22 12:45 136 H 16 121/75 94 06/19/22 12:32 132 H 114/61 06/19/22 11:08 104 H 18 95 06/19/22 11:00 103 H 18 126/78 95 06/19/22 10:34 121 H 145/82 H 06/19/22 09:46 37.2 C 122 H 20 146/72 H 93 O2 Del Method 06/19/22 12:45 Room Air 06/19/22 12:32 06/19/22 11:08 Room Air 06/19/22 11:00 Room Air 06/19/22 10:34 06/19/22 09:46 Room Air Diagnostic Findings Chest X-Ray 06/19/22 10:00 XR chest 1V portable HISTORY: Shortness of breath COMPARISON: Chest 01/19/2010. FINDINGS: The cardiac silhouette remains mildly enlarged. The lungs are clear. No pleural effusions. No pneumothorax. No evidence for pulmonary edema. IMPRESSION: No significant change compared to the prior study. No acute process. ACT 112: Negative or not required by law. Electronically signed by: Chester Coles M.D. 06/19/2022 10:35 AM Medications Administered Medication List Discontinued Medications Albuterol (Albut/Ipratrop 3mg/0.5mg Neb 3 Ml Vial) 12 ml NEB ONE ONE; Protocol Stop: 06/19/22 10:00 Last Admin: 06/19/22 11:08 Dose: 12 ml Documented By: JOSE F Dexamethasone Sodium Phosphate (DexamethasonePf 10 Mg/Ml Vial) 10 mg IV NOW ONE Stop: 06/19/22 10:00 Last Admin: 06/19/22 10:38 Dose: 10 mg Documented By: LEVON Sodium Chloride (Nss 1000ml) 1,000 mls @ 999 mls/hr IV .Q1H1M ONE Stop: 06/19/22 10:59 Last Admin: 06/19/22 10:40 Dose: 999 mls/hr Documented By: LEVON Ceftriaxone Sodium (Rocephin) 2,000 mg in 70 mls @ 140 mls/hr IV NOW STA Stop: 06/19/22 13:08 Last Admin: 06/19/22 12:58 Dose: 140 mls/hr Documented By: ANJELICA Metoprolol Tartrate (Metoprolol Tartrate 1 Mg/Ml Vial) 5 mg IV NOW STA Stop: 06/19/22 10:00 Last Admin: 06/19/22 10:34 Dose: 5 mg Documented By: LEVON Metoprolol Tartrate (Metoprolol Tartrate 1 Mg/Ml Vial) 5 mg IV NOW STA Stop: 06/19/22 12:28 Last Admin: 06/19/22 12:32 Dose: 5 mg Documented By: ANJELICA Metoprolol Tartrate (Metoprolol Tartrate 1 Mg/Ml Vial) 5 mg IV NOW STA Stop: 06/19/22 12:50 Last Admin: 06/19/22 12:58 Dose: 5 mg Documented By: ANJELICA ECG Additional Comments: EKG: Rate 116, afib, qtc 455, no st t wave changes reviewed by me. COVID-19 Results Results COVID-19 Adm Lab Results: RBC 4.66 M/uL (4.70-6.10) L 06/19/22 WBC 13.66 K/ul (4.8-10.8) H 06/19/22 Hgb 14.2 g/dl (14.0-18.0) 06/19/22 Hct 42.0 % (42.0-52.0) 06/19/22 Plt Count 247 K/uL (130-400) 06/19/22 Neutrophils (%) (Auto) 80.1 % 06/19/22 Lymphocytes (%) (Auto) 5.6 % 06/19/22 Monocytes # (Auto) 1.82 K/uL (0.11-0.59) H 06/19/22 Eosinophils # (Auto) 0.02 K/uL (0-0.50) 06/19/22 Immature Granulocyte % (Auto) 0.6 % 06/19/22 Neutrophils # (Auto) 10.94 K/uL (1.40-6.50) H 06/19/22 Lymphocytes # (Auto) 0.76 K/uL (1.2-3.4) L 06/19/22 Monocytes # (Auto) 1.82 K/uL (0.11-0.59) H 06/19/22 Eosinophils # (Auto) 0.02 K/uL (0-0.50) 06/19/22 Basophils # (Auto) 0.04 K/uL (0-0.2) 06/19/22 Immature Granulocyte # (Auto) 0.08 K/uL (0.01-0.20) 3 Na 136 mmol/L (136-145) 06/19/22 K 3.7 mmol/L (3.5-5.1) 06/19/22 Cl 107 mmol/L (98-107) 06/19/22 CO2 17 mmol/L (21-32) L 06/19/22 Anion Gap 12 (3-11) H 06/19/22 BUN 21 mg/dl (6-23) 06/19/22 Creatinine 1.20 mg/dl (0.6-1.4) 06/19/22 BUN/Creatinine Ratio 17.5 (10-20) 06/19/22 Glucose Level 215 mg/dl (70-99(Fasting)) H 06/19/22 Ca 9.0 mg/dl (8.5-10.1) 06/19/22 Total Bilirubin 1.2 mg/dl (0.2-1.0) H 06/19/22 Direct Bilirubin 0.2 mg/dl (0-0.2) 06/19/22 AST/SGOT 14 U/L (13-39) 06/19/22 ALT/SGPT 14 U/L (7-52) 06/19/22 Alkaline Phosphatase 60 U/L (34-104) 06/19/22 Total Protein 6.7 gm/dl (6.0-8.3) 06/19/22 Albumin 3.7 gm/dl (3.4-5.0) 06/19/22 INR 1.1 (0.9-1.1) 06/19/22 COVID-19 PCR NEGATIVE (Negative) 06/19/22 Influenza Virus Type A (PCR) Negative (Neg) 06/19/22 Influenza Virus Type B (PCR) Negative (Neg) 06/19/22 Chest X-Ray 06/19/22 Code Status & VTE Plan Code Status FULL CODE Supervising Physician Co-Signing Physician Notes Pt is a 76 y/o M with hx of CAD s/p stent, Afib on eliquis, IDDM, CKD III, APRYL on CPAP, HTN, COPD, HLD admitted for Afib with RVR and COPD exacerbation Pt was started on prednisone and has been taking mucinex DM for his URI symptoms. Echo from 02/2022: EF 55-59%, LV wall thickness, A flutter on examination, LV normal wall motion, mild mitral regurgitation PE: NAD, well developed Lungs: Good air entry b/l with inspiratory wheezing and b/l rales Cardiac: in afib Abd: ND, NT, soft MSK: no LE edema Psych: AAOx3, normal affect A/P: Afib with RVR: -likely 2/2 recent albuterol use (which was prescribed 3 days ago) + Cough meds with DM -pt received Lopressor & albuterol nebs in the ER -HR ranging from 90-120 but BP was 90s/60s -for now will continue pts home metoprolol dose (ER 50mg daily) and isosorbide mononitrate -admit to tele - trop neg --- recent echo showed normal EF -cardiology consultation COPD exacerbation: -2/2 likely viral URI -COVID/Flu/RSV: neg -will do zpak, prednisone burst, and levoalbuterol q6hr, flutter valve -CXR: no acute process -for now will try mucinex BID with Flonase qhs for cough Other chronic conditions: plan as above Agree with A/P by Xiomara Bertrand PA-C
[2022-06-19] MEDS ORDERED: POTASSIUM CHLORIDE CRTAB 20 MEQ TABCR PO STA (13:55)
[2022-06-19] MEDS ORDERED: MAGNESIUM HYDROXIDE SUSP 30 ML UDC PO PRN (15:52)
[2022-06-19] MEDS ORDERED: DEXTROSE 50% 50 ML SYRINGE IV PRN (15:52)
[2022-06-19] MEDS ORDERED: CARBOHYDRATES FOR HYPOGLYCEMIA PO PRN (15:52)
[2022-06-19] MEDS ORDERED: ONDANSETRON INJ 2 MG/ML 2 ML VIAL IV PRN (15:52)
[2022-06-19] MEDS ORDERED: GLUCOSE 10 TAB/TUBE PO PRN (15:52)
[2022-06-19] MEDS ORDERED: PHARMACY GLYCEMIC MGMT CONSULT PRN (15:52)
[2022-06-19] MEDS ORDERED: GLUCOSE 40% GEL 15 GM TUBE PO PRN (15:52)
[2022-06-19] MEDS ORDERED: MAGNESIUM SULFATE / D5W 1 GM/100 ML BAG IV ONE (15:52)
[2022-06-19] MEDS ORDERED: POLYETHYLENE (MIRALAX) 17 GM PACK PO PRN (15:52)
[2022-06-19] MEDS ORDERED: ALUMINUM/MAGNESIUM SUSP 30 ML UDC PO PRN (15:52)
[2022-06-19] MEDS ORDERED: GLUCAGON FOR INJ 1 MG VIAL SQ PRN (15:52)
[2022-06-19] MEDS ORDERED: LANTUS PER UNIT CHARGE SQ SCH (17:00)
--- NOTE | 2022-06-19 17:06 | Cardiology Consultation ---
Date of Consultation June 19, 2022 Assessment & Plan (1) Permanent atrial fibrillation: - Patient with history of permanent atrial fibrillation, ventricular rates elevated in the setting of respiratory illness. Discontinue metoprolol succinate 50 mg for now, and will treat him with short acting metoprolol tartrate 25 mg 4 times daily during his acute illness. Continue Eliquis 5 mg twice daily for stroke prophylaxis. Treatment of viral respiratory illness, or perhaps complicated bronchitis as per the hospital service. Patient receiving azithromycin, prednisone. Magnesium supplementation previously prescribed by the admitting team for magnesium level of 1.5. History of Present Illness Attending Physician: Oscar Hicks MD History of Present Illness Vadim Corey is a 76-year-old male seen in cardiology consultation per the request of Xiomara Bertrand PA-C and Dr Hicks for the evaluation of atrial fibrillation with rapid ventricular response. The patient's primary transit coach operator is Dr. Khan of our practice. Patient is accompanied by his son, Vasyl, at the bedside. He states that he has had progressive symptoms of fever, productive cough and chills over the last week. Over the last 3 days he has had difficulty sleeping due to ongoing symptoms of chills and productive cough. He has a history of permanent atrial fibrillation which was initially diagnosed in November,. A 7-day potline monitor worn December, revealed continuous atrial fibrillation with average rate of 88 bpm. Today on arrival, he was tachycardic, with ventricular rates in excess of 130 bpm. He has received metoprolol intravenously, 5 mg x 3 doses with improvement in his ventricular rates down to the 100-110 bpm range. He denies any subjective palpitations or chest discomfort that would be characteristic of angina. 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 Persistent atrial fibrillation, diagnosed 12/18/2021 during neurostimulator implant a.[id number] score of 5 (age 3, HTN, DM, CAD) Allergies Allergy/AdvReac Type Severity Reaction Status Date / Time Quinolones Allergy Mild difficultly Verified 08/19/21 08:46 breathing Sulfa (Sulfonamide Allergy Mild hives and Verified 08/19/21 08:46 Antibiotics) throat swelling Home Medications Medication Instructions Recorded Confirmed Type alfuzosin 10 mg tablet,extended 10 mg PO DAILY 12/19/20 06/19/22 History release 24 hr aspirin 81 mg tablet,delayed 81 mg PO DAILY 12/19/20 06/19/22 History release (Adult Aspirin Regimen) atorvastatin 80 mg tablet 80 mg PO DAILY 12/19/20 06/19/22 History finasteride 5 mg tablet 5 mg PO DAILY 12/19/20 06/19/22 History fluocinonide 0.05 % topical cream 1 applic topical BID 12/19/20 06/19/22 History hydrocodone 5 mg-acetaminophen 325 1 tab PO Q6H PRN Pain 12/19/20 06/19/22 History mg tablet isosorbide mononitrate 60 mg 60 mg PO DAILY 12/19/20 06/19/22 History tablet,extended release 24 hr metformin 500 mg tablet,extended 500 mg PO BID 12/19/20 06/19/22 History release 24hr nitroglycerin 0.4 mg sublingual 0.4 mg sublingual Q5M PRN Chest 12/19/20 06/19/22 History tablet Pain omeprazole 20 mg capsule,delayed 20 mg PO DAILY 12/19/20 06/19/22 History release sertraline 50 mg tablet 50 mg PO DAILY 12/19/20 06/19/22 History CoQ-10 1 tab PO DAILY 06/19/22 06/19/22 History apixaban 5 mg tablet (Eliquis) 5 mg PO BID 06/19/22 06/19/22 History cyanocobalamin (vitamin B-12) 1,000 mcg PO DAILY 06/19/22 06/19/22 History 1,000 mcg tablet dulaglutide 4.5 mg/0.5 mL 4.5 mg subcut WK 06/19/22 06/19/22 History subcutaneous pen injector (Trulicity) empagliflozin 25 mg tablet 25 mg PO DAILY 06/19/22 06/19/22 History (Jardiance) fexofenadine 180 mg tablet 180 mg PO DAILY PRN Allergic 06/19/22 06/19/22 History Symptoms insulin glargine 100 unit/mL (3 15 unit subcut AMHS 06/19/22 06/19/22 History mL) subcutaneous pen lisinopril 2.5 mg tablet 2.5 mg PO DAILY 06/19/22 06/19/22 History metoprolol succinate 50 mg 50 mg PO DAILY 06/19/22 06/19/22 History tablet,extended release 24 hr semaglutide 7 mg tablet (Rybelsus) 7 mg PO DAILY 06/19/22 06/19/22 History tiotropium bromide 18 mcg capsule 1 cap inhalation DAILY 06/19/22 06/19/22 History with inhalation device (Spiriva with HandiHaler) Patient History Medical History Anxiety CAD (coronary artery disease) Chronic prostatitis CKD (chronic kidney disease), stage III Diabetes mellitus, type II GERD (gastroesophageal reflux disease) HLD (hyperlipidemia) HTN (hypertension) APRYL on CPAP Permanent atrial fibrillation Sacroiliac joint pain Sleep apnea Spinal stenosis of lumbar region Surgical History History of total left hip arthroplasty S/P coronary artery stent placement "2006" S/P spinal surgery "2000" Family History Father Prostate cancer Stroke Mother Stroke Social History Smoking Status: Never smoker Tobacco Type: Cigarettes packs per day: 20; Hx Alcohol Use: Yes Alcohol type: hard liquor Hx Substance Use: No Preferred Language: Martiniquais Communication Ability: Effective Senior Managing Director Required: No Beliefs That Will Affect Care: None marital status: / Current Living Situation: Alone Other Information That Helps Us Care for You: No Feels Safe at Home: Yes Safety Concerns: Feels Safe At This Time Assistive Devices: Cane and Glasses Review of Systems Review of Systems: All systems reviewed & are unremarkable except as noted in HPI & below Physical Exam Physical Exam: Temp Pulse Resp BP Pulse Ox O2 Del Method 36.5 C 108 H 20 116/72 93 06/19/22 15:53 06/19/22 15:53 06/19/22 15:53 06/19/22 15:53 06/19/22 15:53 06/19/22 16:18 Constitutional: WD/WN, vitals as above Respiratory: no respiratory distress and no labored breathing Auscultation: + rhonchi (Bilaterally); no crackles and no wheezes Cardiovascular: Rate/Rhythm: + tachycardic and + irregularly irregular Heart Sounds: no murmur Vessels: no JVD Extremities: no edema Gastrointestinal (Abdomen): normal bowel sounds, soft, nontender, no hepatosplenomegaly Neurologic: PERRL, EOMI, accommodation nl, no face palsy, no dysarthria Results & Data ([facility]) Laboratory Results Cardiac Enzymes 06/19/22 06/19/22 Range/Units 10:38 10:38 AST 14 (13-39) U/L Troponin I High Sens 13.6 (0-20) pg/ml B-Natriuretic Peptide 389 H (0-100) pg/ml Coagulation 06/19/22 06/19/22 06/19/22 Range/Units 10:38 10:38 11:18 PT Cancelled 11.7 B-Natriuretic Peptide 389 H (0-100) pg/ml CBC 06/19/22 Range/Units 10:38 WBC 13.66 H (4.8-10.8) K/ul RBC 4.66 L (4.70-6.10) M/uL Hgb 14.2 (14.0-18.0) g/dl Hct 42.0 (42.0-52.0) % Plt Count 247 (130-400) K/uL Neut # (Auto) 10.94 H (1.40-6.50) K/uL Lymph # (Auto) 0.76 L (1.2-3.4) K/uL [place] # (Auto) 1.82 H (0.11-0.59) K/uL Eos # (Auto) 0.02 (0-0.50) K/uL Baso # (Auto) 0.04 (0-0.2) K/uL Comprehensive Metabolic Panel 06/19/22 Range/Units 10:38 Sodium 136 (136-145) mmol/L Potassium 3.7 (3.5-5.1) mmol/L Chloride 107 (98-107) mmol/L Carbon Dioxide 17 L (21-32) mmol/L BUN 21 (6-23) mg/dl Creatinine 1.20 (0.6-1.4) mg/dl Glucose 215 H (70-99(Fasting)) mg/dl Calcium 9.0 (8.5-10.1) mg/dl Direct Bilirubin 0.2 (0-0.2) mg/dl AST 14 (13-39) U/L ALT 14 (7-52) U/L Alkaline Phosphatase 60 (34-104) U/L Total Protein 6.7 (6.0-8.3) gm/dl Albumin 3.7 (3.4-5.0) gm/dl Diagnostic Findings EKG performed today 06/19/2022 and interpreted independently, atrial fibrillation with rapid ventricular sponsor 116 bpm. Normal QT interval 455 ms, 1 PVC. Poor R wave progression noted. Compared to the outpatient tracing performed 12/25/2021, poor R wave progression noted at that time, and has been present dating back to June,. Summary of radiology report chest x-ray: No acute cardiopulmonary abnormality Outpatient echocardiogram performed 03/02/2022: Moderate concentric left ventricular hypertrophy, normal LV wall motion without regional wall motion normalities, LVEF 55-59%. Moderate left atrial lodgment Mild right atrial enlargement Mild aortic valve sclerosis Mild mitral regurgitation
[2022-06-19] MEDS: INSULIN ASPART PER UNIT SC SCH ×2 (17:11→20:12)
[2022-06-19] MEDS: METOPROLOL TARTRATE 25 MG TAB PO SCH ×2 (17:39→19:32)
[2022-06-19] MEDS: LEVALBUTEROL HCL 0.63 MG/3 ML NEB NEB SCH (18:07)
[2022-06-19] MEDS: FLUTICASONE PROPIONATE NA SPR 16 GM BTL SCH (19:31)
[2022-06-19] MEDS: APIXABAN 5 MG TABLET PO SCH (19:32)
[2022-06-19] MEDS: guaiFENesin 600 MG TABCR PO SCH (19:32)
[2022-06-20] MEDS: LEVALBUTEROL HCL 0.63 MG/3 ML NEB NEB SCH ×5 (00:11→19:30)
[2022-06-20] MEDS: METOPROLOL TARTRATE 1 MG/ML VIAL IV PRN ×2 (00:16→00:19)
[2022-06-20] MEDS ORDERED: dilTIAZem HCl 5 MG/ML 5 ML VIAL IV STA (01:35)
[2022-06-20] MEDS ORDERED: LACTATED RINGER'S 1,000 ML IV ONE (01:36)
[2022-06-20 06:28] LABS: Basophils # (auto) 0.02 K/uL (0-0.2); Basophils % (auto) 0.2 %; Hematocrit (blood only) 40.2 % (42.0-52.0); Hemoglobin 13.7 g/dl (14.0-18.0); Immature Granulocytes # (auto) 0.09 K/uL (0.01-0.20); Immature Granulocytes % (auto) 0.8 %; Lymphocytes # (auto) 0.93 K/uL (1.2-3.4); Lymphocytes % (auto) 7.8 %; Mean Corpuscular Hemoglobin 30.4 pg (25.0-34.0); Mean Corpuscular Hgb Conc 34.1 g/dL (32.0-36.0); Mean Corpuscular Volume 89.1 fL (80.0-100.0); Mean Platelet Volume 9.6 fL (9.4-12.4); Neutrophils # (auto) 9.71 K/uL (1.40-6.50); Neutrophils % (auto) 81.2 %; Platelet Count 270 K/uL (130-400); RDW Coefficient of Variation 13.1 % (11.5-14.5); RDW Standard Deviation 43.1 fL (36.4-46.3); Red Blood Count 4.51 M/uL (4.70-6.10); White Blood Count 11.95 K/ul (4.8-10.8)
[2022-06-20 07:04] LABS: Calcium 9.1 mg/dl (8.5-10.1); Magnesium 2.1 mg/dl (1.7-2.4); Potassium 4.6 mmol/L (3.5-5.1)
[2022-06-20 07:06] LABS: BUN Creatinine Ratio 20.4 (10-20); Creatinine Clr Calc Pharmacy 75.2 ml/min; Est GFR (African American) 77.4 ml/min; Est GFR (Non-African American) 66.8 ml/min
--- NOTE | 2022-06-20 07:27 | Electrocardiogram Report ---
Test Reason : Blood Pressure : / mmHG Vent. Rate : 116 BPM Atrial Rate : 104 BPM P-R Int : 000 ms QRS Dur : 086 ms QT Int : 328 ms P-R-T Axes : 000 -02 -01 degrees QTc Int : 455 ms Poor data quality, interpretation may be adversely affected Atrial fibrillation with rapid ventricular response with premature ventricular or aberrantly conducte d complexes Low voltage QRS Poor R wave progression, consider anterior MN vs. lead placement vs. LVH Abnormal ECG When compared with ECG of 19-JAN-2010 03:09, Atrial fibrillation has replaced Sinus rhythm Vent. rate has increased BY 48 BPM Minimal criteria for Anterior infarct are now Present Confirmed by Alejandro Ragsdale ([id number]) on 06/20/2022 7:27:17 AM Referred By: REFERRED SELF Confirmed By:Arthur Ragsdale
--- NOTE | 2022-06-20 07:39 | Electrocardiogram Report ---
Test Reason : Blood Pressure : / mmHG Vent. Rate : 102 BPM Atrial Rate : 187 BPM P-R Int : 000 ms QRS Dur : 086 ms QT Int : 316 ms P-R-T Axes : 000 062 031 degrees QTc Int : 411 ms Atrial fibrillation with rapid ventricular response Low voltage QRS Possible Anterolateral infarct (cited on or before 19-JUN-2022) Abnormal ECG When compared with ECG of 19-JUN-2022 10:15, (unconfirmed) Questionable change in QRS axis Confirmed by Alejandro Ragsdale ([id number]) on 06/20/2022 7:38:39 AM Referred By: REFERRED SELF Confirmed By:Arthur Ragsdale
[2022-06-20] MEDS: INSULIN ASPART PER UNIT SC SCH ×4 (08:24→20:33)
[2022-06-20] MEDS: METOPROLOL TARTRATE 25 MG TAB PO SCH ×4 (08:25→20:38)
[2022-06-20] MEDS: predniSONE 20 MG TAB PO SCH (08:26)
[2022-06-20] MEDS: DOXYCYCLINE HYCLATE 100 MG CAP PO SCH ×2 (08:26→20:38)
[2022-06-20] MEDS: ALFUZOSIN HCL 10 MG TAB PO SCH (08:26)
[2022-06-20] MEDS: ASPIRIN 81 MG ECTAB PO SCH (08:27)
[2022-06-20] MEDS: CYANOCOBALAMIN (B-12) 500 MCG TABLET PO SCH (08:27)
[2022-06-20] MEDS: FINASTERIDE 5 MG TAB PO SCH (08:27)
[2022-06-20] MEDS: ATORVASTATIN 40 MG TAB PO SCH (08:27)
[2022-06-20] MEDS: guaiFENesin 600 MG TABCR PO SCH ×2 (08:28→20:38)
[2022-06-20] MEDS: ISOSORBIDE MONO EXTENDED REL 60 MG TABCR PO SCH (08:28)
[2022-06-20] MEDS: lisinopril 2.5 MG TAB PO SCH (08:28)
[2022-06-20] MEDS: SERTRALINE HCL 50 MG TABLET PO SCH (08:29)
[2022-06-20] MEDS: PANTOprazole 40 MG TAB PO SCH (08:29)
[2022-06-20] MEDS: APIXABAN 5 MG TABLET PO SCH ×2 (08:29→20:37)
[2022-06-20] MEDS: UMECLIDINIUM BROMIDE 62.5MCG/BLISTER 7 PUFFS/INHALER INH SCH (08:30)
[2022-06-20] MEDS ORDERED: METOPROLOL SUCC 50MG EXT REL TAB PO SCH (09:00)
[2022-06-20] MEDS ORDERED: AZITHROMYCIN 250 MG TAB PO SCH (09:00)
[2022-06-20] MEDS ORDERED: COQ PO SCH (09:00)
[2022-06-20] MEDS ORDERED: LANTUS PER UNIT CHARGE SQ SCH (09:00)
[2022-06-20] MEDS: INSULIN HUMAN NPH SC SCH (10:22)
--- NOTE | 2022-06-20 14:08 | Hospitalist Progress Note ---
Date of Service June 20, 2022 Assessment & Plan (1) COPD exacerbation: (2) Atrial fibrillation with rapid ventricular response: (3) Hypomagnesemia: (4) Diabetes mellitus, type II: (5) CAD (coronary artery disease): (6) HTN (hypertension): (7) APRYL on CPAP: Plan Patient is a 76 yr male with H/O CAD S/P bare-metal stent to LAD in 2006, HTN, HLD, APRYL on CPAP, COPD, former tobacco abuser, permanent A. fib anticoagulated, insulin-dependent T2DM, CKD stage III, chronic prostatitis who presents to ED secondary to URI symptoms for 10 days. Acute COPD Exacerbation -CXR:No significant change compared to the prior study. No acute process. Continue Doxycycline, Prednisone, Nebs Continue home inhalers Pulmonary toilet Saturating well on room air Atrial fibrillation with RVR Permanent atrial fibrillation Recent echo 02/2022 revealed preserved EF of 55%, moderately enlarged left atrium and aortic valve sclerosis Continue Eliquis Continue metoprolol Appreciate Cardiology Input Monitor and replace electrolytes as needed Check TSH Hypomagnesemia Replace as needed Leukocytosis Likely due to steroids DM II Last A1c 02/2022 was 9.2 HbA1C pending Lantus/NovoLog per protocol, consult with pharmacy with use of steroid Hold metformin, Rybelsus, Januvia and Trulicity Monitor BGs CAD H/O PCI to LAD with BMS in 2006 Hypertension Hyperlipidemia Continue ASA, statin, Imdur, metoprolol and lisinopril CKD III monitor renal function APRYL on CPAP DVT Px: On Eliquis Code Status FULL CODE Admission and Anticipated Discharge Date Admission Date: June 19, 2022 Subjective Patient is seen and examined at bedside States feeling a lot better today Less cough, dyspnea today Denies any chest pain, dizziness, nausea, palpitations, abdominal pain Intermittently tachycardic on monitor Saturating well on room air No other complaints Review of Systems Review of Systems: All systems reviewed & are unremarkable except as noted in Subjective Physical Exam Physical Exam: Physical Exam: Vitals signs as noted above General Appearance:Obese, no apparent distress Head: normocephalic, Atraumatic Eyes: normal inspection, EOMI Neck: supple, Trachea midline Respiratory/Chest: Decreased coarse breath sounds, No accessory muscle use Cardiovascular: Irregularly irregular, No murmur Abdomen/GI:Soft, Non tender, Bowel sounds present Extremities/Musculoskeletal:normal inspection, Trace edema Neurologic/Psych:AAOX3, grossly no focal neurological deficits Skin: normal color, warm Results & Data Results & Data ([facility]) Vital Signs (Past 12 Hours) Vital Signs Temp Pulse Resp BP BP Pulse Ox O2 Del Method 06/20/22 13:26 116 H 18 97 Room Air 06/20/22 11:21 36.3 C L 80 18 136/84 95 Room Air 06/20/22 08:00 Room Air 06/20/22 06:43 36.5 C 110 H 18 147/93 H 95 CPAP 06/20/22 05:17 99 H 18 95 CPAP 06/20/22 04:10 36.7 C 93 H 18 155/91 H 93 CPAP FiO2 06/20/22 13:26 06/20/22 11:21 06/20/22 08:00 06/20/22 06:43 06/20/22 05:17 21 06/20/22 04:10 Laboratory Results Short CBC 06/20/22 Range/Units 05:53 WBC 11.95 H (4.8-10.8) K/ul Hgb 13.7 L (14.0-18.0) g/dl Hct 40.2 L (42.0-52.0) % Plt Count 270 (130-400) K/uL BMP 06/20/22 05:53 Sodium 136 Potassium 4.6 D Chloride 109 H Carbon Dioxide 18 L BUN 22 Creatinine 1.08 Glucose 136 H Calcium 9.1
--- NOTE | 2022-06-20 14:34 | Cardiology Progress Note ---
Date of Service June 20, 2022 Assessment & Plan (1) Permanent atrial fibrillation: Plan: - Persistent atrial fibrillation with rates elevated above his usual baseline likely due to underlying viral respiratory illness. -Continue rate control with metoprolol tartrate 25 mg 4 times daily. -Continue Eliquis 5 mg twice daily for stroke prophylaxis. Admission and Anticipated Discharge Date Admission Date: June 19, 2022 Subjective Patient seen in cardiology follow-up of atrial fibrillation. He notes that he feels like his cough perhaps has improved, but he questions if the prednisone is contributing to him having insomnia. He has not rested well in days. But he does feel better now than compared to before he came to the hospital. With regards to his atrial fibrillation, the rates have trended toward improvement, with ventricular rate in the range of 100 to 110 bpm at present. Physical Exam Constitutional: WD/WN, vitals as above Respiratory: no respiratory distress and no labored breathing Auscultation: + rhonchi (Bilaterally); no crackles and no wheezes Cardiovascular: Rate/Rhythm: + tachycardic and + irregularly irregular Heart Sounds: no murmur Vessels: no JVD Extremities: no edema Gastrointestinal (Abdomen): normal bowel sounds, soft, nontender, no hepatosplenomegaly Neurologic: PERRL, EOMI, accommodation nl, no face palsy, no dysarthria Results & Data ([facility]) Vital Signs (Past 12 Hours) Vital Signs Temp Pulse Resp BP BP Pulse Ox O2 Del Method 06/20/22 13:26 116 H 18 97 Room Air 06/20/22 11:21 36.3 C L 80 18 136/84 95 Room Air 06/20/22 08:00 Room Air 06/20/22 06:43 36.5 C 110 H 18 147/93 H 95 CPAP 06/20/22 05:17 99 H 18 95 CPAP 06/20/22 04:10 36.7 C 93 H 18 155/91 H 93 CPAP FiO2 06/20/22 13:26 06/20/22 11:21 06/20/22 08:00 06/20/22 06:43 06/20/22 05:17 21 06/20/22 04:10
--- NOTE | 2022-06-20 14:53 | Pharmacy Report ---
Pharmacy Glycemic Short Note 2 - Date of Service June 20, 2022 - Glycemic Short BSG Results (Last 24 hours): 06/19/22 06/19/22 06/20/22 16:05 20:06 05:53 Glucose 136 H POC Glucose 248 H 178 H 06/20/22 06/20/22 07:36 11:20 Glucose POC Glucose 131 H 90 OUTPATIENT ANTIDIABETIC REGIMEN: * Trulicity 4.5 mg SQ weekly * Jardiance 25 mg PO daily * Lantus 15 units BID * metformin 500 mg PO BID * semaglutode 9 mg po daily??? ASSESSMENT: * Mr Corey is a 76 y/o M with a PMH of T2DM who presents with pulmonary illness. Patient was on prednisone PO at home. * BSGs on admission were 248-178 mg/dL. Patient received dexamethasone 10 mg IV x 1. Patient received 30 units of Lantus yesterday + 21 units of Novolog (between dinner and HS) * Fasting today is 131 mg/dL- lunch 90 mg/dL. * Patient started on prednisone 40 mg daily. For this, start NPH 35 units daily. * For Lantus, will do a scale for this evening. Patient's fasting is within goal range even after dexamethasone 10 mg IV. Without the dexamethasone, Lantus 30 units daily is likely too aggressive. Will have scale for this evening with dose reductions. * Novolog weight-based stress of 2. PLAN FOR INPATIENT GLYCEMIC CONTROL: * Hold outpatient oral diabetes medications * Basal insulin * Lantus 15 units SQ HS (20 units if BSG > 140 mg/dL) * Bolus insulin * NovoLog per scale ACHS or Q6hrs while NPO * Goal Range: Low 110 mg/dL - High 140 mg/dL * Correction Factor: 25 mg/dL/unit * Nutritional / Prandial insulin per carb ratio of 1 unit per 7 grams CHO consumed
[2022-06-20] MEDS: LANTUS PER UNIT CHARGE SQ SCH (20:34)
[2022-06-20] MEDS: MELATONIN 3 MG TAB PO PRN (20:37)
[2022-06-20] MEDS: FLUTICASONE PROPIONATE NA SPR 16 GM BTL SCH (20:40)
[2022-06-21] MEDS: LEVALBUTEROL HCL 0.63 MG/3 ML NEB NEB SCH ×4 (02:01→20:09)
[2022-06-21 06:22] LABS: Basophils # (auto) 0.03 K/uL (0-0.2); Basophils % (auto) 0.2 %; Eosinophils # (auto) 0.02 K/uL (0-0.50); Eosinophils % (auto) 0.1 %; Hematocrit (blood only) 40.9 % (42.0-52.0); Hemoglobin 13.7 g/dl (14.0-18.0); Immature Granulocytes # (auto) 0.14 K/uL (0.01-0.20); Lymphocytes # (auto) 1.62 K/uL (1.2-3.4); Lymphocytes % (auto) 11.4 %; Mean Corpuscular Hemoglobin 30.2 pg (25.0-34.0); Mean Corpuscular Hgb Conc 33.5 g/dL (32.0-36.0); Mean Corpuscular Volume 90.3 fL (80.0-100.0); Mean Platelet Volume 9.5 fL (9.4-12.4); Monocytes # (auto) 1.52 K/uL (0.11-0.59); Monocytes % (auto) 10.7 %; Neutrophils % (auto) 76.6 %; Platelet Count 313 K/uL (130-400); RDW Coefficient of Variation 13.6 % (11.5-14.5); Red Blood Count 4.53 M/uL (4.70-6.10); White Blood Count 14.23 K/ul (4.8-10.8)
[2022-06-21 06:45] LABS: Calcium 9.4 mg/dl (8.5-10.1); Magnesium 1.9 mg/dl (1.7-2.4)
[2022-06-21 06:51] LABS: BUN Creatinine Ratio 19.5 (10-20); Creatinine Clr Calc Pharmacy 52.7 ml/min; Est GFR (African American) 50.4 ml/min; Est GFR (Non-African American) 43.5 ml/min
[2022-06-21 07:18] LABS: Estimated Average Glucose 169 mg/dl; Hemoglobin A1C 7.5 % (4.5-5.6)
[2022-06-21] MEDS: INSULIN ASPART PER UNIT SC SCH ×4 (08:17→20:31)
[2022-06-21] MEDS: INSULIN HUMAN NPH SC SCH (08:45)
[2022-06-21] MEDS: ALFUZOSIN HCL 10 MG TAB PO SCH (08:45)
[2022-06-21] MEDS: ASPIRIN 81 MG ECTAB PO SCH (08:46)
[2022-06-21] MEDS: METOPROLOL TARTRATE 25 MG TAB PO SCH ×4 (08:47→20:35)
[2022-06-21] MEDS: DOXYCYCLINE HYCLATE 100 MG CAP PO SCH ×2 (08:47→20:36)
[2022-06-21] MEDS: CYANOCOBALAMIN (B-12) 500 MCG TABLET PO SCH (08:47)
[2022-06-21] MEDS: APIXABAN 5 MG TABLET PO SCH ×2 (08:47→20:35)
[2022-06-21] MEDS: ATORVASTATIN 40 MG TAB PO SCH (08:47)
[2022-06-21] MEDS: ISOSORBIDE MONO EXTENDED REL 60 MG TABCR PO SCH (08:48)
[2022-06-21] MEDS: FINASTERIDE 5 MG TAB PO SCH (08:48)
[2022-06-21] MEDS: PANTOprazole 40 MG TAB PO SCH (08:49)
[2022-06-21] MEDS: lisinopril 2.5 MG TAB PO SCH (08:49)
[2022-06-21] MEDS: SERTRALINE HCL 50 MG TABLET PO SCH (08:49)
[2022-06-21] MEDS: predniSONE 20 MG TAB PO SCH (08:49)
[2022-06-21] MEDS: UMECLIDINIUM BROMIDE 62.5MCG/BLISTER 7 PUFFS/INHALER INH SCH (08:49)
[2022-06-21] MEDS: guaiFENesin 600 MG TABCR PO SCH ×2 (08:58→20:34)
[2022-06-21] MEDS: ACETAMINOPHEN 325 MG TAB PO PRN ×2 (09:03→17:18)
--- NOTE | 2022-06-21 10:06 | Electrocardiogram Report ---
Test Reason : Blood Pressure : / mmHG Vent. Rate : 092 BPM Atrial Rate : 093 BPM P-R Int : 000 ms QRS Dur : 088 ms QT Int : 326 ms P-R-T Axes : 000 047 031 degrees QTc Int : 403 ms Atrial fibrillation Low voltage QRS Cannot rule out Anterior infarct (cited on or before 19-JUN-2022) Abnormal ECG When compared with ECG of 20-JUN-2022 05:23, No significant change was found Confirmed by Paulino Garland ([id number]) on 06/21/2022 10:05:56 AM Referred By: REFERRED SELF Confirmed By:Paulino Garland
--- NOTE | 2022-06-21 12:12 | Cardiology Progress Note ---
Date of Service June 21, 2022 Assessment & Plan (1) Permanent atrial fibrillation: Plan: - Persistent atrial fibrillation with rates elevated above his usual baseline likely due to underlying viral respiratory illness. -Continue rate control with metoprolol tartrate 25 mg 4 times daily. -Continue Eliquis 5 mg twice daily for stroke prophylaxis. -Creatinine has trended up to 1.54, proceed with gentle hydration NSS at 80 ml/hr x 500ml. -At discharge, will discharge on metoprolol succinate 50 mg BID rather than one time per day. -Could perhaps be discharged today with follow up BMP as outpt. Admission and Anticipated Discharge Date Admission Date: June 19, 2022 Subjective Patient seen in cardiology follow up of atrial fibrillation. He notes feeling better. He was finally able to get a full night of sleep last night. Telemetry reveals AF with rates in the range of 80-110s . Physical Exam Constitutional: WD/WN, vitals as above Respiratory: no respiratory distress and no labored breathing Auscultation: + rhonchi (Bilaterally); no crackles and no wheezes Cardiovascular: Rate/Rhythm: + tachycardic and + irregularly irregular Heart Sounds: no murmur Vessels: no JVD Extremities: no edema Gastrointestinal (Abdomen): normal bowel sounds, soft, nontender, no hepatosplenomegaly Neurologic: PERRL, EOMI, accommodation nl, no face palsy, no dysarthria Results & Data ([facility]) Vital Signs (Past 12 Hours) Vital Signs Temp Pulse Pulse Resp BP BP Pulse Ox 06/21/22 11:47 36.6 C 92 H 17 108/79 94 06/21/22 08:00 06/21/22 08:00 107 H 06/21/22 07:50 36.8 C 96 H 20 140/92 96 06/21/22 07:24 90 18 96 06/21/22 04:35 36.6 C 101 H 20 135/96 96 06/21/22 02:01 O2 Del Method 06/21/22 11:47 Room Air 06/21/22 08:00 Room Air, CPAP 06/21/22 08:00 06/21/22 07:50 Room Air 06/21/22 07:24 Room Air 06/21/22 04:35 CPAP 06/21/22 02:01 CPAP Laboratory Results CBC 06/21/22 Range/Units 05:46 WBC 14.23 H (4.8-10.8) K/ul RBC 4.53 L (4.70-6.10) M/uL Hgb 13.7 L (14.0-18.0) g/dl Hct 40.9 L (42.0-52.0) % Plt Count 313 (130-400) K/uL Neut # (Auto) 10.90 H (1.40-6.50) K/uL Lymph # (Auto) 1.62 (1.2-3.4) K/uL Dane # (Auto) 1.52 H (0.11-0.59) K/uL Eos # (Auto) 0.02 (0-0.50) K/uL Baso # (Auto) 0.03 (0-0.2) K/uL Comprehensive Metabolic Panel 06/21/22 Range/Units 05:46 Sodium 137 (136-145) mmol/L Potassium 4.0 (3.5-5.1) mmol/L Chloride 107 (98-107) mmol/L Carbon Dioxide 24 (21-32) mmol/L BUN 30 H (6-23) mg/dl Creatinine 1.54 H D (0.6-1.4) mg/dl Glucose 100 H (70-99(Fasting)) mg/dl Calcium 9.4 (8.5-10.1) mg/dl Diagnostic Findings EKG 06/21/22: AF at 92 bpm.
[2022-06-21] MEDS ORDERED: SODIUM CHLORIDE 0.9% 500 ML IV SCH (12:15)
[2022-06-21] MEDS ORDERED: DEXTROMETHORPHAN POLYMR COMPLX 30 MG/5 ML UDP PO PRN (14:42)
--- NOTE | 2022-06-21 16:07 | Hospitalist Progress Note ---
Date of Service June 21, 2022 Assessment & Plan (1) COPD exacerbation: (2) Atrial fibrillation with rapid ventricular response: (3) Hypomagnesemia: (4) Diabetes mellitus, type II: (5) CAD (coronary artery disease): (6) HTN (hypertension): (7) APRYL on CPAP: Plan Patient is a 76 yr male with H/O CAD S/P bare-metal stent to LAD in 2006, HTN, HLD, APRYL on CPAP, COPD, former tobacco abuser, permanent A. fib anticoagulated, insulin-dependent T2DM, CKD stage III, chronic prostatitis who presents to ED secondary to URI symptoms for 10 days. Acute COPD Exacerbation -CXR:No significant change compared to the prior study. No acute process. Continue Doxycycline, Prednisone, Nebs Continue home inhalers Pulmonary toilet Saturating well on room air Likely plan to discharge home tomorrow Atrial fibrillation with RVR Permanent atrial fibrillation Recent echo 02/2022 revealed preserved EF of 55%, moderately enlarged left atrium and aortic valve sclerosis Normal TSH Continue Eliquis Continue metoprolol Appreciate Cardiology Input Monitor and replace electrolytes as needed Hypomagnesemia Replace as needed Leukocytosis Likely due to steroids DM II Last A1c 02/2022 was 9.2 HbA1C 7.5 Lantus/NovoLog per protocol, consult with pharmacy with use of steroid Hold metformin, Rybelsus, Januvia and Trulicity Monitor BGs CAD H/O PCI to LAD with BMS in 2006 Hypertension Hyperlipidemia Continue ASA, statin, Imdur, metoprolol and lisinopril CKD III Baseline ~ 1.5 monitor renal function Avoid nephrotoxic agents as able APRYL on CPAP DVT Px: On Eliquis Code Status FULL CODE Admission and Anticipated Discharge Date Admission Date: June 19, 2022 Subjective Patient is seen and examined at bedside Slept well overnight Still has expectorant cough but improving Family at bedside Dyspnea resolved Denies any chest pain, dizziness, nausea, palpitations, abdominal pain Saturating well on room air Review of Systems Review of Systems: All systems reviewed & are unremarkable except as noted in Subjective Physical Exam Physical Exam: Physical Exam: Vitals signs as noted above General Appearance:Obese, no apparent distress Head: normocephalic, Atraumatic Eyes: normal inspection, EOMI Neck: supple, Trachea midline Respiratory/Chest: Decreased breath sounds, scattered rhonchi, No accessory muscle use Cardiovascular: Irregularly irregular, No murmur, Tachycardic Abdomen/GI:Soft, Non tender, Bowel sounds present Extremities/Musculoskeletal:normal inspection, Trace edema Neurologic/Psych:AAOX3, grossly no focal neurological deficits Skin: normal color, warm Results & Data Results & Data ([facility]) Vital Signs (Past 12 Hours) Vital Signs Temp Pulse Pulse Resp BP BP Pulse Ox 06/21/22 13:42 117 H 124/79 06/21/22 13:16 106 H 18 94 06/21/22 11:47 36.6 C 92 H 17 108/79 94 06/21/22 08:00 06/21/22 08:00 107 H 06/21/22 07:50 36.8 C 96 H 20 140/92 96 06/21/22 07:24 90 18 96 06/21/22 04:35 36.6 C 101 H 20 135/96 96 O2 Del Method 06/21/22 13:42 06/21/22 13:16 Room Air 06/21/22 11:47 Room Air 06/21/22 08:00 Room Air, CPAP 06/21/22 08:00 06/21/22 07:50 Room Air 06/21/22 07:24 Room Air 06/21/22 04:35 CPAP Laboratory Results Short CBC 06/21/22 Range/Units 05:46 WBC 14.23 H (4.8-10.8) K/ul Hgb 13.7 L (14.0-18.0) g/dl Hct 40.9 L (42.0-52.0) % Plt Count 313 (130-400) K/uL BMP 06/21/22 05:46 Sodium 137 Potassium 4.0 Chloride 107 Carbon Dioxide 24 BUN 30 H Creatinine 1.54 H D Glucose 100 H Calcium 9.4
[2022-06-21] MEDS: LANTUS PER UNIT CHARGE SQ SCH (20:30)
[2022-06-21] MEDS: FLUTICASONE PROPIONATE NA SPR 16 GM BTL SCH (20:36)
[2022-06-21] MEDS: MELATONIN 3 MG TAB PO PRN (20:40)
[2022-06-22] MEDS: LEVALBUTEROL HCL 0.63 MG/3 ML NEB NEB SCH ×3 (01:20→12:31)
[2022-06-22 06:47] LABS: Basophils # (auto) 0.03 K/uL (0-0.2); Basophils % (auto) 0.3 %; Eosinophils # (auto) 0.05 K/uL (0-0.50); Eosinophils % (auto) 0.4 %; Hematocrit (blood only) 40.4 % (42.0-52.0); Hemoglobin 13.6 g/dl (14.0-18.0); Immature Granulocytes # (auto) 0.19 K/uL (0.01-0.20); Immature Granulocytes % (auto) 1.6 %; Lymphocytes # (auto) 1.82 K/uL (1.2-3.4); Lymphocytes % (auto) 15.7 %; Mean Corpuscular Hemoglobin 30.4 pg (25.0-34.0); Mean Corpuscular Hgb Conc 33.7 g/dL (32.0-36.0); Mean Corpuscular Volume 90.2 fL (80.0-100.0); Mean Platelet Volume 9.4 fL (9.4-12.4); Monocytes # (auto) 1.34 K/uL (0.11-0.59); Monocytes % (auto) 11.5 %; Neutrophils # (auto) 8.18 K/uL (1.40-6.50); Neutrophils % (auto) 70.5 %; Platelet Count 308 K/uL (130-400); RDW Standard Deviation 43.1 fL (36.4-46.3); Red Blood Count 4.48 M/uL (4.70-6.10); White Blood Count 11.61 K/ul (4.8-10.8)
[2022-06-22 07:04] LABS: BUN Creatinine Ratio 26.4 (10-20); Calcium 9.3 mg/dl (8.5-10.1); Creatinine Clr Calc Pharmacy 62.7 ml/min; Est GFR (African American) 62.4 ml/min; Est GFR (Non-African American) 53.9 ml/min; Magnesium 1.8 mg/dl (1.7-2.4); Potassium 4.3 mmol/L (3.5-5.1)
[2022-06-22 07:48] VITALS: O2SAT 95
[2022-06-22] MEDS: DOXYCYCLINE HYCLATE 100 MG CAP PO SCH (08:00)
[2022-06-22] MEDS: UMECLIDINIUM BROMIDE 62.5MCG/BLISTER 7 PUFFS/INHALER INH SCH (08:00)
[2022-06-22] MEDS: ACETAMINOPHEN 325 MG TAB PO PRN (08:00)
[2022-06-22] MEDS: ASPIRIN 81 MG ECTAB PO SCH (08:01)
[2022-06-22] MEDS: predniSONE 20 MG TAB PO SCH (08:01)
[2022-06-22] MEDS: ALFUZOSIN HCL 10 MG TAB PO SCH (08:01)
[2022-06-22] MEDS: CYANOCOBALAMIN (B-12) 500 MCG TABLET PO SCH (08:02)
[2022-06-22] MEDS: ISOSORBIDE MONO EXTENDED REL 60 MG TABCR PO SCH (08:02)
[2022-06-22] MEDS: PANTOprazole 40 MG TAB PO SCH (08:02)
[2022-06-22] MEDS: ATORVASTATIN 40 MG TAB PO SCH (08:02)
[2022-06-22] MEDS: lisinopril 2.5 MG TAB PO SCH (08:02)
[2022-06-22] MEDS: METOPROLOL TARTRATE 25 MG TAB PO SCH ×2 (08:03→13:19)
[2022-06-22] MEDS: APIXABAN 5 MG TABLET PO SCH (08:03)
[2022-06-22] MEDS: FINASTERIDE 5 MG TAB PO SCH (08:03)
[2022-06-22] MEDS: guaiFENesin 600 MG TABCR PO SCH (08:04)
[2022-06-22] MEDS: SERTRALINE HCL 50 MG TABLET PO SCH (08:04)
[2022-06-22] MEDS: INSULIN ASPART PER UNIT SC SCH ×2 (08:19→12:14)
[2022-06-22] MEDS: INSULIN HUMAN NPH SC SCH (08:20)
[2022-06-22 11:30] VITALS: BP 126/77; TEMP 98.1
--- NOTE | 2022-06-22 12:54 | Hospitalist Progress Note ---
Date of Service June 22, 2022 Assessment & Plan (1) COPD exacerbation: (2) Atrial fibrillation with rapid ventricular response: (3) Hypomagnesemia: (4) Diabetes mellitus, type II: (5) CAD (coronary artery disease): (6) HTN (hypertension): (7) APRYL on CPAP: Plan Patient is a 76 yr male with H/O CAD S/P bare-metal stent to LAD in 2006, HTN, HLD, APRYL on CPAP, COPD, former tobacco abuser, permanent A. fib anticoagulated, insulin-dependent T2DM, CKD stage III, chronic prostatitis who presents to ED secondary to URI symptoms for 10 days. Acute COPD Exacerbation -CXR:No significant change compared to the prior study. No acute process. Continue Doxycycline, Prednisone, Nebs Continue home inhalers Pulmonary toilet Saturating well on room air Plan to discharge on Prednisone taper course Atrial fibrillation with RVR Permanent atrial fibrillation Recent echo 02/2022 revealed preserved EF of 55%, moderately enlarged left atrium and aortic valve sclerosis Normal TSH Continue Eliquis Continue metoprolol Appreciate Cardiology Input Monitor and replace electrolytes as needed Plan to discharge on metoprolol succinate 50 mg BID Hypomagnesemia Replace as needed Leukocytosis Likely due to steroids DM II Last A1c 02/2022 was 9.2 HbA1C 7.5 Lantus/NovoLog per protocol, consult with pharmacy with use of steroid Hold metformin, Rybelsus, Januvia and Trulicity Monitor BGs CAD H/O PCI to LAD with BMS in 2006 Hypertension Hyperlipidemia Continue ASA, statin, Imdur, metoprolol and lisinopril CKD III Baseline ~ 1.5 monitor renal function Avoid nephrotoxic agents as able APRYL on CPAP DVT Px: On Eliquis Code Status FULL CODE Disposition Home Admission and Anticipated Discharge Date Admission Date: June 19, 2022 Subjective Patient is seen and examined at bedside Doing much better today Still has cough but otherwise no complaints Denies any chest pain, dyspnea, dizziness, nausea, palpitations, abdominal pain Saturating well on room air Review of Systems Review of Systems: All systems reviewed & are unremarkable except as noted in Subjective Physical Exam Physical Exam: Physical Exam: Vitals signs as noted above General Appearance:Obese, no apparent distress Head: normocephalic, Atraumatic Eyes: normal inspection, EOMI Neck: supple, Trachea midline Respiratory/Chest: Decreased breath sounds, scattered rhonchi, No accessory muscle use Cardiovascular: Irregularly irregular, No murmur, Tachycardic Abdomen/GI:Soft, Non tender, Bowel sounds present Extremities/Musculoskeletal:normal inspection, Trace edema Neurologic/Psych:AAOX3, grossly no focal neurological deficits Skin: normal color, warm Results & Data Results & Data ([facility]) Vital Signs (Past 12 Hours) Vital Signs Temp Pulse Resp BP BP Pulse Ox O2 Del Method 06/22/22 12:32 78 18 95 Room Air 06/22/22 11:29 36.7 C 94 H 17 126/77 95 Room Air 06/22/22 09:50 123/79 06/22/22 08:00 Room Air 06/22/22 07:47 36.5 C 98 H 17 149/108 H 95 Room Air, BiPAP 06/22/22 07:13 71 20 93 Room Air 06/22/22 03:24 36.4 C L 105 H 20 144/79 H 95 CPAP 06/22/22 01:20 CPAP Laboratory Results Short CBC 06/22/22 Range/Units 06:20 WBC 11.61 H (4.8-10.8) K/ul Hgb 13.6 L (14.0-18.0) g/dl Hct 40.4 L (42.0-52.0) % Plt Count 308 (130-400) K/uL BMP 06/22/22 06:20 Sodium 138 Potassium 4.3 Chloride 108 H Carbon Dioxide 23 BUN 34 H Creatinine 1.29 Glucose 83 Calcium 9.3
--- NOTE | 2022-06-22 13:17 | Discharge Summary ---
Date of Service June 22, 2022 Admission HPI Per Admitting Provider This is a 76-year-old male who has significant past medical history of CAD with history of bare-metal stent to LAD in 2006, HTN, HLD, APRYL on CPAP, COPD, former tobacco abuser, permanent A. fib anticoagulated, insulin-dependent T2DM, CKD stage III, chronic prostatitis who presents to ED secondary to URI symptoms for 10 days. He was evaluated via telemedicine on 06/16/2022 secondary to URI symptoms that started on 06/09. He does admit to having a fever 100.5, chills, rhinorrhea, postnasal drip, sore throat, productive cough with increased shortness of breath and wheezing Per OP notes. He was diagnosed with a COPD exacerbation started on Mucinex, albuterol, 5 days of prednisone. Due to symptoms not improving he then presented to ED today. In ED patient was found to be in A. fib with RVR. His lab work was significant for leukocytosis at 13.66k,, BUN/creatinine 21 and 1.20, magnesium 1.5, glucose 215 and mildly elevated BNP at 389. His influenza, RSV and SARS-CoV-2 were negative. He did receive nebulizer treatment as well as IV dexamethasone. He was also started on ceftriaxone and azithromycin for treatment for community-acquired pneumonia. He does have known history of atrial fibrillation however his rate was uncontrolled in ED. According to nurse he also had an hour-long nebulizer treatment which spiked his heart rates from high 90s to 130s. He did receive 3 doses of IV Lopressor 5 mg. He states he took 4 days of prednisone, Robitussin with, muccinex dm and regular muccinex, APAP & albuterol inhaler. He is taking it tid. He does not feel improved. He also tried tessalon Perles with minimal relief. He complained of chills, chest congestion, prod cough with green sputum, fatigue and SOB. He had a bad night last night. He could not sleep. He c/o choking and coughing. He denies leg edema or orthopnea. He denies chest pain, palpitations, documented fever, sweats, lightheaded, dizziness, n/v/d, abd pain or change in urinary habits. Admission Exam Per Admitting Provider PE: NAD, well developed Lungs: Good air entry b/l with inspiratory wheezing and b/l rales Cardiac: in afib Abd: ND, NT, soft MSK: no LE edema Psych: AAOx3, normal affect Principal Diagnosis Acute COPD Exacerbation Atrial fibrillation with RVR Discharge Data Allergies Allergy/AdvReac Type Severity Reaction Status Date / Time Quinolones Allergy Mild difficultly Verified 08/19/21 08:46 breathing Sulfa (Sulfonamide Allergy Mild hives and Verified 08/19/21 08:46 Antibiotics) throat swelling Consultations 06/19/22 13:03 ED Decision to Admit Stat 06/19/22 13:34 Consult Cardiology Routine Procedures Performed Laboratory Results WBC 11.61 K/ul (4.8-10.8) H 06/22/22 06:20 RBC 4.48 M/uL (4.70-6.10) L 06/22/22 06:20 Hgb 13.6 g/dl (14.0-18.0) L 06/22/22 06:20 Hct 40.4 % (42.0-52.0) L 06/22/22 06:20 MCV 90.2 fL (80.0-100.0) 06/22/22 06:20 MCH 30.4 pg (25.0-34.0) 06/22/22 06:20 MCHC 33.7 g/dL (32.0-36.0) 06/22/22 06:20 RDW Std Deviation 43.1 fL (36.4-46.3) 06/22/22 06:20 RDW Coeff of Louisa 13.0 % (11.5-14.5) 06/22/22 06:20 Plt Count 308 K/uL (130-400) 06/22/22 06:20 MPV 9.4 fL (9.4-12.4) 06/22/22 06:20 Immature Gran % (Auto) 1.6 % 06/22/22 06:20 Neut % (Auto) 70.5 % 06/22/22 06:20 Lymph % (Auto) 15.7 % 06/22/22 06:20 Wilkes % (Auto) 11.5 % 06/22/22 06:20 Eos % (Auto) 0.4 % 06/22/22 06:20 Baso % (Auto) 0.3 % 06/22/22 06:20 Neut # (Auto) 8.18 K/uL (1.40-6.50) H 06/22/22 06:20 Lymph # (Auto) 1.82 K/uL (1.2-3.4) 06/22/22 06:20 Wilkes # (Auto) 1.34 K/uL (0.11-0.59) H 06/22/22 06:20 Eos # (Auto) 0.05 K/uL (0-0.50) 06/22/22 06:20 Baso # (Auto) 0.03 K/uL (0-0.2) 06/22/22 06:20 Immature Gran # (Auto) 0.19 K/uL (0.01-0.20) 06/22/22 06:20 PT 11.7 Seconds (9.0-12.0) 06/19/22 11:18 INR 1.1 (0.9-1.1) 06/19/22 11:18 Sodium 138 mmol/L (136-145) 06/22/22 06:20 Potassium 4.3 mmol/L (3.5-5.1) 06/22/22 06:20 Chloride 108 mmol/L (98-107) H 06/22/22 06:20 Carbon Dioxide 23 mmol/L (21-32) 06/22/22 06:20 Anion Gap 7 (3-11) 06/22/22 06:20 BUN 34 mg/dl (6-23) H 06/22/22 06:20 Creatinine 1.29 mg/dl (0.6-1.4) 06/22/22 06:20 Est Cr Clr Drug Dosing 62.7 ml/min 06/22/22 06:20 Est GFR ( Amer) 62.4 ml/min 06/22/22 06:20 Est GFR (Non-Af Amer) 53.9 ml/min 06/22/22 06:20 BUN/Creatinine Ratio 26.4 (10-20) H 06/22/22 06:20 Glucose 83 mg/dl (70-99(Fasting)) 06/22/22 06:20 POC Glucose 126 mg/dl (70-99) H 06/22/22 11:15 Estimat Average Glucose 169 mg/dl 06/21/22 05:53 Hemoglobin A1c 7.5 % (4.5-5.6) H 06/21/22 05:53 Lactate 1.6 mmol/L (0.4-2.0) 06/19/22 10:38 Calcium 9.3 mg/dl (8.5-10.1) 06/22/22 06:20 Magnesium 1.8 mg/dl (1.7-2.4) 06/22/22 06:20 Total Bilirubin 1.2 mg/dl (0.2-1.0) H 06/19/22 10:38 Direct Bilirubin 0.2 mg/dl (0-0.2) 06/19/22 10:38 AST 14 U/L (13-39) 06/19/22 10:38 ALT 14 U/L (7-52) 06/19/22 10:38 Alkaline Phosphatase 60 U/L (34-104) 06/19/22 10:38 Troponin I High Sens 13.6 pg/ml (0-20) 06/19/22 10:38 B-Natriuretic Peptide 389 pg/ml (0-100) H 06/19/22 10:38 Total Protein 6.7 gm/dl (6.0-8.3) 06/19/22 10:38 Albumin 3.7 gm/dl (3.4-5.0) 06/19/22 10:38 TSH 2.676 uIu/ml (0.300-4.500) 06/21/22 05:46 SARS-CoV-2 (PCR) NEGATIVE (Negative) 06/19/22 10:38 Hepatitis C Ab (EIA) NON-REACTIVE (NON-REACTIVE) 06/21/22 05:53 Hep C Ab Signal/Cutoff 0.03 (<1.00) 06/21/22 05:53 Influenza Type A (PCR) Negative (Neg) 06/19/22 10:38 Influenza Type B (PCR) Negative (Neg) 06/19/22 10:38 RSV (RT-PCR) Negative (Neg) 06/19/22 10:38 Impressions Chest X-Ray 06/19/22 10:00 XR chest 1V portable HISTORY: Shortness of breath COMPARISON: Chest 01/19/2010. FINDINGS: The cardiac silhouette remains mildly enlarged. The lungs are clear. No pleural effusions. No pneumothorax. No evidence for pulmonary edema. IMPRESSION: No significant change compared to the prior study. No acute process. ACT 112: Negative or not required by law. Electronically signed by: Chester Coles M.D. 06/19/2022 10:35 AM Hospital Course (1) COPD exacerbation: (2) Atrial fibrillation with rapid ventricular response: (3) Hypomagnesemia: (4) Diabetes mellitus, type II: (5) CAD (coronary artery disease): (6) HTN (hypertension): (7) APRYL on CPAP: Plan Patient is a 76 yr male with H/O CAD S/P bare-metal stent to LAD in 2006, HTN, HLD, APRYL on CPAP, COPD, former tobacco abuser, permanent A. fib anticoagulated, insulin-dependent T2DM, CKD stage III, chronic prostatitis who presents to ED secondary to URI symptoms for 10 days. Acute COPD Exacerbation -CXR:No significant change compared to the prior study. No acute process. Continue Doxycycline, Prednisone, Nebs Continue home inhalers Pulmonary toilet Saturating well on room air Plan to discharge on Prednisone taper course Atrial fibrillation with RVR Permanent atrial fibrillation Recent echo 02/2022 revealed preserved EF of 55%, moderately enlarged left atrium and aortic valve sclerosis Normal TSH Continue Eliquis Continue metoprolol Appreciate Cardiology Input Monitor and replace electrolytes as needed Plan to discharge on metoprolol succinate 50 mg BID Hypomagnesemia Replace as needed Leukocytosis Likely due to steroids DM II Last A1c 02/2022 was 9.2 HbA1C 7.5 Lantus/NovoLog per protocol, consult with pharmacy with use of steroid Hold metformin, Rybelsus, Januvia and Trulicity Monitor BGs CAD H/O PCI to LAD with BMS in 2006 Hypertension Hyperlipidemia Continue ASA, statin, Imdur, metoprolol and lisinopril CKD III Baseline ~ 1.5 monitor renal function Avoid nephrotoxic agents as able APRYL on CPAP DVT Px: On Eliquis Code Status FULL CODE Disposition Home Total Time Total Time Spent Total Time Spent (In Minutes): 50 minutes Discharge Plan Discharge Items Patient Disposition: Home - Self-Care Reason For Visit: COPD EXAC Discharge Diagnosis: Acute COPD Exacerbation Atrial fibrillation with RVR Activity: Per Instructions section Exercise/Sports: Wait until after follow-up appointment Non-emergency contact: Primary Care Provider and Icing Coater Call non-emergency contact if: you have any medication questions, your symptoms worsen, your pain is concerning for you and you have a fever Follow-up/Referrals: Kartik Rosenbaum DO [Primary Care Provider] - (Date & Time 06/28/2022 11:20 AM Provider Kartik Rosenbaum DO Department [facility] ) Diet: Carb Consistent or DM2 and Heart Healthy Addtl Attending Provider Instructions: Follow up with with your Primary Care physician on 06/28/2022 11:20 AM as scheduled Follow-up with your furnace builder in 4-6 weeks --- Complete the prednisone course and Doxycycline as prescribed. --Start taking metoprolol succinate 50 mg twice a day as recommended by your furnace builder. Prednisone course: Starting prednisone 30 mg daily for 2 days, then take 20 mg daily for 2 days, then take 10 mg daily for 2 days and stop Seek immediate medical attention if your symptoms reoccur or worsen Please take all medications as instructed on discharge list below. Please call if you have any questions or problems. You can reach a [facility] hospitalist on duty at [facility] 24 hours a day by calling [phone] Pending Studies at Discharge: No Stand-Alone Forms: My [facility], Smoking Cessation Medications and DC Order Prescriptions: New doxycycline hyclate 100 mg Capsule 100 mg PO BID Qty: 9 0RF prednisone 10 mg tablet 10 mg PO DIRECTED Qty: 12 0RF Rx Instructions: Starting prednisone 30 mg daily for 2 days, then take 20 mg daily for 2 days, then take 10 mg daily for 2 days and stop Continued metformin 500 mg tablet extended release 24hr 500 mg PO BID hydrocodone-acetaminophen 5-325 mg tablet 1 tab PO Q6H PRN (Reason: Pain) finasteride 5 mg tablet 5 mg PO DAILY sertraline 50 mg tablet 50 mg PO DAILY omeprazole 20 mg capsule,delayed release(DR/EC) 20 mg PO DAILY isosorbide mononitrate 60 mg tablet extended release 24 hr 60 mg PO DAILY fluocinonide 0.05 % cream 1 applic topical BID atorvastatin 80 mg tablet 80 mg PO DAILY alfuzosin 10 mg tablet extended release 24 hr 10 mg PO DAILY Rx Instructions: administer after the same meal each day aspirin [Adult Aspirin Regimen] 81 mg tablet,delayed release (DR/EC) 81 mg PO DAILY nitroglycerin 0.4 mg tablet, sublingual 0.4 mg sublingual Q5M PRN (Reason: Chest Pain) Rx Instructions: do not exceed 3 doses per episode fexofenadine 180 mg Tablet 180 mg PO DAILY PRN (Reason: Allergic Symptoms) insulin glargine 100 unit/mL (3 mL) Insulin Pen 15 unit SUBCUT AMHS Eliquis 5 mg tablet 5 mg PO BID CoQ-10 100 mg 1 tab PO DAILY cyanocobalamin (vitamin B-12) 1,000 mcg Tablet 1,000 mcg PO DAILY Rybelsus 7 mg Tablet 7 mg PO DAILY Rx Instructions: Pt on day 4 suppose to take 7 mg for 5 days and then cut it in half and take 3 mg daily Trulicity 4.5 mg/0.5 mL Pen Injector 4.5 mg SUBCUT WK lisinopril 2.5 mg tablet 2.5 mg PO DAILY Spiriva with HandiHaler 18 mcg capsule, w/inhalation device 1 cap INHALATION DAILY Jardiance 25 mg tablet 25 mg PO DAILY Changed metoprolol succinate 50 mg Tablet Extended Release 24 Hr 50 mg PO BID Qty: 60 0RF Discharge Orders: Discharge Order (Routine); Ordered 06/22/22 Ordered By: Ahsan Collins/Other Patient Handouts: Managing Type 2 Diabetes Admission Data Admit Date/Time: 06/19/22 13:17 Attending Provider: Ahsan Church Admit Provider: Oscar Hicks Primary Care Provider: Kartik Rosenbaum Other Providers: Colton Farrell ; Oscar Hicks
[2022-06-22 13:18] VITALS: PULSE 98
== END 2022-06-22 14:14 | disposition home or self-care (01) | DRG 191 ==
LOC: ED 09:43 → 2S 13:17 → SUATTDRO 13:17 → 2S 14:46

== ENCOUNTER 2025-05-03 16:27 | Inpatient (IN) ==
[2025-05-03 17:04] LABS: Hematocrit (blood only) 40.6 % (42.0-52.0); Hemoglobin 13.4 g/dL (14.0-18.0); Mean Corpuscular Hemoglobin 29.8 pg (25.0-34.0); Mean Corpuscular Volume 90.4 fL (80.0-100.0); Platelet Count 256 K/uL (130-400); RDW Standard Deviation 43.8 fL (36.4-46.3); Red Blood Count 4.49 M/uL (4.70-6.10); White Blood Count 8.61 K/ul (4.8-10.8)
--- NOTE | 2025-05-03 17:04 | Emergency Department Note ---
Impression & Plan Dyspnea, Pericarditis, Bilateral pleural effusion ED Provider Note HISTORY OF PRESENT ILLNESS: Patient is a 79-year-old male presenting with shortness of breath. Patient reports he has been having progressively worsening shortness of breath over the last 2 to 3 weeks. He states that he is short of breath with taking only a few steps at a time. He reports that at rest he does not feel short of breath. Denies any chest pain. He states that bending over to put on his shoes also makes him short of breath. He had workup done in the outpatient setting and a CT scan showed that he had " fluid on my lungs and fluid on my heart." Patient is on Eliquis for history of A-fib. He denies any recent fevers or chills. He does report he has had a nonproductive cough over the last 2 to 3 weeks. He states that he feels like his abdomen is very "full." Denies any lower extremity edema. He is not on any diuretic medications. He does have a history of CAD with a stent in place. He denies any recent sick contact exposures. ROS: as above PHYSICAL EXAM: Constitutional: Patient appears in no acute distress. HENT: Head: Normocephalic and atraumatic. Eyes: EOMI, PERRL Mouth/Throat: Mucous membranes moist. Neck: Trachea midline. Neck supple. Cardiovascular: Tachycardic with irregularly irregular rhythm. No murmurs, rubs or gallops. Intact distal pulses. Pulmonary/Chest: No respiratory distress. Breath sounds clear and equal bilaterally. No wheezes or rales. Abdominal: Abdomen soft, no tenderness, rebound or guarding. Musculoskeletal: No edema, tenderness or deformity noted. Skin: Warm and dry. No rash, erythema, pallor or cyanosis Psychiatric: Appropriate mood and affect for situation. Neurological: Alert and keenly responsive. CN II-XII grossly intact, moving all extremities equally and fully. MDM: - Vitals signs showed tachycardia - History obtained via patient. History as above. - Chronic conditions affecting care: CAD; CKD; permanent Afib; COPD; HTN; HLD - Differential diagnoses include, but are not limited to: Congestive heart failure; acute coronary syndrome; COPD/asthma exacerbation; pulmonary edema; pulmonary embolism; pneumonia; pneumothorax; viral syndrome - Order placed for continuous cardiac monitoring. At this time, monitor showed rate of 96 bpm with irregular rhythm, per my interpretation. - External medical records reviewed. Discharge summary dated 06/22/2022 was reviewed. Patient was admitted for A-fib with RVR and acute COPD exacerbation at that time. No recent echocardiogram in the patient's chart. - EKG image interpreted by myself showed atrial fibrillation. Rate tachycardic at 105 bpm. QT 283. No acute ischemic changes. - Laboratory workup interpreted by myself showed normal WBC; elevated ESR (48); stable electrolytes; elevated CRP (4.00); elevated BNP (218); normal troponin; normal lipase - CT chest with IV contrast obtained earlier today in the outpatient setting showed small pericardial effusion with pericardial thickening which is nonspecific but pericarditis could not be excluded. Noted to have moderate left and small right pleural effusions. - Given patient's pleural effusions, his shortness of breath over the last few weeks may be secondary to potential CHF. He has no significant lower extremity edema. His BNP is slightly elevated. Given his progressively worsening of symptoms, will admit to hospitalist service for further cardiac workup. - Discussion was had with caser up about patient's case and need for admission - Hospitalist consulted for admission - Patient admitted to [facility] hospitalist service for further evaluation and management. ASSESSMENT AND PLAN: Diagnosis: Dyspnea; pericarditis; bilateral pleural effusion Plan: Admit Past Med/Surg History Problem List (Updated 05/03/25 @ 20:22 by Denise Robertson MD) Bilateral pleural effusion (Acute) Pericarditis (Acute) Dyspnea (Acute) Epidermal cyst (01/03/24) FINAL DIAGNOSIS in office procedure Dr. Lee Skin and subcutaneous tissue, "back mass" (excision): - An inflamed epidermal cyst with a foreign body giant cell reaction is seen. Sebaceous cyst Mass on back CKD (chronic kidney disease) Left leg pain Low back pain Heart disease COPD exacerbation Permanent atrial fibrillation History of total left hip arthroplasty (Acute) Chronic prostatitis (Chronic) CKD (chronic kidney disease), stage III (Chronic) Diabetes mellitus, type II (Chronic) Anxiety (Chronic) APRYL on CPAP (Chronic) HLD (hyperlipidemia) (Chronic) HTN (hypertension) (Chronic) GERD (gastroesophageal reflux disease) (Chronic) Sleep apnea (Chronic) CAD (coronary artery disease) (Chronic) Atrial fibrillation with rapid ventricular response (Acute) Complicated acute bronchitis (Acute) Persistent cough (Acute) Hypomagnesemia (Acute) Spinal stenosis of lumbar region Sacroiliac joint pain Lumbar radiculopathy Lumbar foraminal stenosis Gluteal pain Ischial bursitis Trochanteric bursitis, right hip Osteoarthritis of left hip Tear of gluteus janet muscle Family History Father Prostate cancer Stroke Mother Stroke Social History Smoking Status: Never smoker Tobacco Type: Cigarettes packs per day: 20; Hx Alcohol Use: Yes Alcohol type: beer and hard liquor Alcohol Intake Frequency: 2-4 x/Month Hx Substance Use: No Preferred Language: Djiboutian Communication Ability: Effective Roof Plumber Required: No Beliefs That Will Affect Care: None marital status: / Current Living Situation: Alone How many Children do You have: 3 Feels Safe at Home: Yes Diet: diabetic during the past year weight has: decreased > 10 lbs Assistive Devices: Cane, Raised Toilet Seat, Walker and Wheelchair Allergies Allergies Allergy/AdvReac Type Severity Reaction Status Date / Time Quinolones Allergy Severe difficultly Verified 05/03/25 18:43 breathing Sulfa (Sulfonamide Allergy Intermediate hives and Verified 05/03/25 18:43 Antibiotics) throat swelling ciprofloxacin AdvReac Intermediate Depression Verified 05/03/25 18:43 Home Meds Home Medications Medication Instructions Recorded Confirmed alfuzosin 10 mg tablet,extended 10 mg PO DAILY 12/19/20 05/03/25 release 24 hr aspirin 81 mg tablet,delayed 81 mg PO DAILY 12/19/20 05/03/25 release (Adult Aspirin Regimen) atorvastatin 80 mg tablet 80 mg PO DAILY 12/19/20 05/03/25 finasteride 5 mg tablet 5 mg PO DAILY 12/19/20 05/03/25 fluocinonide 0.05 % topical cream 1 applic topical BID PRN APPLY TO 12/19/20 05/03/25 SCALP NEEDED isosorbide mononitrate 60 mg 60 mg PO DAILY 12/19/20 05/03/25 tablet,extended release 24 hr nitroglycerin 0.4 mg sublingual 0.4 mg sublingual Q5M PRN Chest 12/19/20 05/03/25 tablet Pain omeprazole 20 mg capsule,delayed 20 mg PO DAILY 12/19/20 05/03/25 release apixaban 5 mg tablet (Eliquis) 5 mg PO BID 06/19/22 05/03/25 cyanocobalamin (vitamin B-12) 1,000 mcg PO DAILY 06/19/22 05/03/25 1,000 mcg tablet dulaglutide 4.5 mg/0.5 mL 4.5 mg subcut WK 06/19/22 05/03/25 subcutaneous pen injector (Trulicity) empagliflozin 25 mg tablet 25 mg PO DAILY 06/19/22 05/03/25 (Jardiance) lisinopril 2.5 mg tablet 2.5 mg PO DAILY 06/19/22 05/03/25 coenzyme Q10 100 mg capsule 100 mg PO BID 05/03/25 05/03/25 ezetimibe 10 mg tablet 10 mg PO QAM 05/03/25 05/03/25 insulin glargine 100 unit/mL (3 20 unit subcut QAM 05/03/25 05/03/25 mL) subcutaneous pen (Basaglar KwikPen U-100 Insulin) metformin 500 mg tablet,extended 500 mg PO BID 05/03/25 05/03/25 release 24 hr sertraline 100 mg tablet 100 mg PO HS 05/03/25 05/03/25 Previous Rx's Medication Instructions Recorded metoprolol succinate 50 mg 50 mg PO BID #60 tabs 06/22/22 tablet,extended release 24 hr Results & Data (ED) Vital Signs Vital Signs - 24 hr 05/03/25 16:33 05/03/25 16:37 05/03/25 17:51 Temperature 37.2 C Temperature Source Skin Pulse Rate 98 H 96 H Pulse Rate from SpO2 Sensor Respiratory Rate 16 Blood Pressure 102/69 Blood Pressure Mean 80 Blood Pressure Position Semi-fowlers Pulse Oximetry 94 98 Oxygen Delivery Method Room Air Sepsis Recent Fever Within 48 Hours No Sepsis New/Unexplained Change in Mental Status N/A Sepsis Action Taken by Nursing No Action Required 05/03/25 17:57 05/03/25 17:58 05/03/25 18:00 Temperature Temperature Source Pulse Rate 106 H Pulse Rate from SpO2 Sensor 100 H Respiratory Rate 22 Blood Pressure 105/66 117/76 Blood Pressure Mean 73 91 Blood Pressure Position Pulse Oximetry 94 Oxygen Delivery Method Sepsis Recent Fever Within 48 Hours Sepsis New/Unexplained Change in Mental Status Sepsis Action Taken by Nursing 05/03/25 18:00 05/03/25 18:30 05/03/25 18:30 Temperature Temperature Source Pulse Rate Pulse Rate from SpO2 Sensor Respiratory Rate Blood Pressure 117/76 123/97 123/97 Blood Pressure Mean 91 102 102 Blood Pressure Position Pulse Oximetry Oxygen Delivery Method Sepsis Recent Fever Within 48 Hours Sepsis New/Unexplained Change in Mental Status Sepsis Action Taken by Nursing 05/03/25 18:30 05/03/25 18:42 05/03/25 18:51 Temperature Temperature Source Pulse Rate 96 H Pulse Rate from SpO2 Sensor 101 H Respiratory Rate 22 Blood Pressure Blood Pressure Mean Blood Pressure Position Pulse Oximetry 92 92 93 Oxygen Delivery Method Sepsis Recent Fever Within 48 Hours Sepsis New/Unexplained Change in Mental Status Sepsis Action Taken by Nursing Laboratory Data 05/03/25 16:47 05/03/25 16:47 Lab Results 05/03/25 Range/Units 16:47 WBC 8.61 (4.8-10.8) K/ul RBC 4.49 L (4.70-6.10) M/uL Hgb 13.4 L (14.0-18.0) g/dL Hct 40.6 L (42.0-52.0) % MCV 90.4 (80.0-100.0) fL MCH 29.8 (25.0-34.0) pg MCHC 33.0 (32.0-36.0) g/dL RDW Std Deviation 43.8 (36.4-46.3) fL RDW Coeff of Louisa 13.2 (11.5-14.5) % Plt Count 256 (130-400) K/uL MPV 9.4 (9.4-12.4) fL ESR 48 H (0-20) mm/hr Sodium 137 (136-145) mmol/L Potassium 4.4 (3.5-5.1) mmol/L Chloride 104 (98-107) mmol/L Carbon Dioxide 23 (21-32) mmol/L Anion Gap 10 (3-11) BUN 21 (6-23) mg/dl Creatinine 1.68 H (0.6-1.4) mg/dl Est Cr Clr Drug Dosing Not Reportable eGFR 41.34 BUN/Creatinine Ratio 12.5 (10-20) Glucose 126 H (70-99(Fasting)) mg/dl Calcium 9.1 (8.6-10.3) mg/dl Total Bilirubin 1.0 (0.2-1.0) mg/dl AST 15 (13-39) U/L ALT 16 (7-52) U/L Alkaline Phosphatase 70 (34-104) U/L Troponin I High Sens 6.8 (0-20) pg/ml C-Reactive Protein 4.00 H (0-0.5) mg/dl B-Natriuretic Peptide 218 H (0-100) pg/ml Total Protein 7.4 (6.0-8.3) gm/dl Albumin 4.1 (3.4-5.0) gm/dl Globulin 3.3 (2.5-4.0) gm/dl Albumin/Globulin Ratio 1.2 (0.9-2) Lipase 72 (11-82) U/L Discharge Plan Visit Data Chief Complaint: Abnormal Labs/Diagnostic Testing Stated Complaint: FLUID ON LUNGS, POSS PERICARDITIS W/ TESTS ED Provider: Denise Robertson Discharge Problem: Dyspnea, Pericarditis, Bilateral pleural effusion Patient Disposition: Admitted As Inpatient Condition: Fair Forms Stand Alone Forms: My [facility] Prescriptions Prescriptions: No Action finasteride 5 mg tablet 5 mg PO DAILY omeprazole 20 mg capsule,delayed release(DR/EC) 20 mg PO DAILY isosorbide mononitrate 60 mg tablet extended release 24 hr 60 mg PO DAILY fluocinonide 0.05 % cream 1 applic topical BID PRN (Reason: APPLY TO SCALP NEEDED) atorvastatin 80 mg tablet 80 mg PO DAILY alfuzosin 10 mg tablet extended release 24 hr 10 mg PO DAILY Rx Instructions: administer after the same meal each day aspirin [Adult Aspirin Regimen] 81 mg tablet,delayed release (DR/EC) 81 mg PO DAILY nitroglycerin 0.4 mg tablet, sublingual 0.4 mg sublingual Q5M PRN (Reason: Chest Pain) Rx Instructions: do not exceed 3 doses per episode Eliquis 5 mg tablet 5 mg PO BID cyanocobalamin (vitamin B-12) 1,000 mcg Tablet 1,000 mcg PO DAILY Trulicity 4.5 mg/0.5 mL Pen Injector 4.5 mg SUBCUT WK lisinopril 2.5 mg tablet 2.5 mg PO DAILY Jardiance 25 mg tablet 25 mg PO DAILY metoprolol succinate 50 mg Tablet Extended Release 24 Hr 50 mg PO BID Qty: 60 0RF sertraline 100 mg tablet 100 mg PO HS metformin 500 mg tablet extended release 24 hr 500 mg PO BID ezetimibe 10 mg tablet 10 mg PO QAM coenzyme Q10 [CoQ-10] 100 mg Capsule 100 mg PO BID insulin glargine [Basaglar KwikPen U-100 Insulin] 100 unit/mL (3 mL) insulin pen 20 unit SUBCUT QAM Referrals Referrals: Ranjana Braden MD [Outside Practitioners] -
[2025-05-03 17:21] LABS: Alanine Aminotransferase 16 U/L (7-52); Albumin Globulin Ratio 1.2 (0.9-2); Albumin Level 4.1 gm/dl (3.4-5.0); Alkaline Phosphatase 70 U/L (34-104); Anion Gap 10 (3-11); Bilirubin,Total 1.0 mg/dl (0.2-1.0); Blood Urea Nitrogen 21 mg/dl (6-23); Calcium 9.1 mg/dl (8.6-10.3); Carbon Dioxide 23 mmol/L (21-32); Chloride 104 mmol/L (98-107); Globulin 3.3 gm/dl (2.5-4.0); Glucose 126 mg/dl (70-99(Fasting)); Lipase 72 U/L (11-82); Potassium 4.4 mmol/L (3.5-5.1); Sodium 137 mmol/L (136-145); Total Protein 7.4 gm/dl (6.0-8.3)
--- NOTE | 2025-05-03 21:17 | History & Physical Report ---
Date of Service May 03, 2025 Assessment & Plan (1) Bilateral pleural effusion: (2) Dyspnea: (3) Permanent atrial fibrillation: (4) APRYL on CPAP: (5) Anxiety: (6) Diabetes mellitus, type II: (7) CKD (chronic kidney disease), stage III: (8) HLD (hyperlipidemia): (9) HTN (hypertension): (10) GERD (gastroesophageal reflux disease): (11) Sleep apnea: (12) CAD (coronary artery disease): (13) Pericardial effusion: Plan 79 y/o male with PMHx that includes CAD s/p PCI in 2006, permanent A-fib, CKD III, COPD, T2DM, HTN, HLD, APRYL on CPAP, GERD, and BRYCE presents with MCDUFFIE x3 weeks: #Dyspnea of exertion // #Bilateral pleural effusion L>R // #Pericardial effusion: -CT chest notable for small pericardial effusion and moderate left/small right pleural effusion -No obvious acute infectious precipitant with absence of leukocytosis or fever -ESR moderately elevated at 48 - ?effusions d/t preceding subclinical viral infection -Fairly low suspicion for decompensated heart failure based on history and exam - however, will assess response to diuresis with trial of IV Lasix 20mg x1 -TTE ordered, pending -Consider pulmonology consult, particularly if non-responsive to trial of diuresis and if TTE unremarkable -AM CMP #CKD III: Cr 1.68 Check AM labs, monitor response to diuresis #A-fib: continue metoprolol, eliquis #COPD: continue tiotropium maintenance inhaler Duoneb PRN for wheezing/shortness of breath #CAD // #HLD // #HTN: continue aspirin, atorvastatin, ezetimibe, imdur, lisinopril #APRYL: CPAP HS #T2DM: Hold home metformin and jardiance BSG checks ACHS Lantus 15U QAM SSI #GERD: continue daily PPI #BRYCE: continue sertraline #BPH: continue alfuzosin, finasteride Dispo: Admit med-tele VTE ppx: Eliquis Diet: HH, CC Full Code History of Present Illness Primary Care Provider: Ady Pacheco MD 79 y/o male with PMHx that includes CAD s/p PCI in 2006, permanent A-fib, CKD III, COPD, T2DM, HTN, HLD, APRYL on CPAP, GERD, and BRYCE presents with MCDUFFIE x3 weeks. Sx started 3 weeks ago, notes that onset of dyspnea coincided with a feeling of abdominal pressure. Denies associated distention or changes in weight. Denies LE edema. Patient was evaluated in outpatient setting, Breo Ellipta added to inhaler regimen with no improvement. Patient states that he can typically ambulate at least 50 yards before becoming dyspneic, now can only take about 10 steps. Only other exacerbating situation is when he bends over to tie his shoes. Denies previous dx of HF or h/o diuretic use, last TTE in 2021 with EF 55-60%, no noted diastolic dysfunction. Denies orthopnea, chest pain, shortness of breath at rest, palpitations. Denies recent illness. Denies fevers/chills, night sweats. He lost weight with Trulicity, o/w no unintentional weight loss. Outpatient CT earlier today was notable for small pericardial effusion and moderate left/small right pleural effusion. Allergies Allergy/AdvReac Type Severity Reaction Status Date / Time Quinolones Allergy Severe difficultly Verified 05/03/25 18:43 breathing Sulfa (Sulfonamide Allergy Intermediate hives and Verified 05/03/25 18:43 Antibiotics) throat swelling ciprofloxacin AdvReac Intermediate Depression Verified 05/03/25 18:43 Home Medications Medication Instructions Recorded Confirmed Type alfuzosin 10 mg tablet,extended 10 mg PO DAILY 12/19/20 05/03/25 History release 24 hr aspirin 81 mg tablet,delayed 81 mg PO DAILY 12/19/20 05/03/25 History release (Adult Aspirin Regimen) atorvastatin 80 mg tablet 80 mg PO DAILY 12/19/20 05/03/25 History finasteride 5 mg tablet 5 mg PO DAILY 12/19/20 05/03/25 History fluocinonide 0.05 % topical cream 1 applic topical BID PRN APPLY TO 12/19/20 05/03/25 History SCALP NEEDED isosorbide mononitrate 60 mg 60 mg PO DAILY 12/19/20 05/03/25 History tablet,extended release 24 hr nitroglycerin 0.4 mg sublingual 0.4 mg sublingual Q5M PRN Chest 12/19/20 05/03/25 History tablet Pain omeprazole 20 mg capsule,delayed 20 mg PO DAILY 12/19/20 05/03/25 History release apixaban 5 mg tablet (Eliquis) 5 mg PO BID 06/19/22 05/03/25 History cyanocobalamin (vitamin B-12) 1,000 mcg PO DAILY 06/19/22 05/03/25 History 1,000 mcg tablet dulaglutide 4.5 mg/0.5 mL 4.5 mg subcut WK 06/19/22 05/03/25 History subcutaneous pen injector (Trulicity) empagliflozin 25 mg tablet 25 mg PO DAILY 06/19/22 05/03/25 History (Jardiance) lisinopril 2.5 mg tablet 2.5 mg PO DAILY 06/19/22 05/03/25 History metoprolol succinate 50 mg 50 mg PO BID #60 tabs 06/22/22 05/03/25 Rx tablet,extended release 24 hr coenzyme Q10 100 mg capsule 100 mg PO BID 05/03/25 05/03/25 History ezetimibe 10 mg tablet 10 mg PO QAM 05/03/25 05/03/25 History insulin glargine 100 unit/mL (3 20 unit subcut QAM 05/03/25 05/03/25 History mL) subcutaneous pen (Basaglar KwikPen U-100 Insulin) metformin 500 mg tablet,extended 500 mg PO BID 05/03/25 05/03/25 History release 24 hr sertraline 100 mg tablet 100 mg PO HS 05/03/25 05/03/25 History Past Med/Surg History Problem List (Updated 05/04/25 @ 09:14 by Alejandro Serrano MD) Pericardial effusion Bilateral pleural effusion (Acute) Pericarditis (Acute) Dyspnea (Acute) Epidermal cyst (01/03/24) FINAL DIAGNOSIS in office procedure Dr. Lee Skin and subcutaneous tissue, "back mass" (excision): - An inflamed epidermal cyst with a foreign body giant cell reaction is seen. Sebaceous cyst COPD exacerbation Permanent atrial fibrillation History of total left hip arthroplasty (Acute) CKD (chronic kidney disease), stage III (Chronic) Diabetes mellitus, type II (Chronic) Anxiety (Chronic) APRYL on CPAP (Chronic) HLD (hyperlipidemia) (Chronic) HTN (hypertension) (Chronic) GERD (gastroesophageal reflux disease) (Chronic) Sleep apnea (Chronic) CAD (coronary artery disease) (Chronic) Hypomagnesemia (Acute) Medical History (Updated 05/04/25 @ 09:14 by Alejandro Serrano MD) Tear of gluteus janet muscle Osteoarthritis of left hip Trochanteric bursitis, right hip Ischial bursitis Lumbar foraminal stenosis Lumbar radiculopathy Sacroiliac joint pain Spinal stenosis of lumbar region Atrial fibrillation with rapid ventricular response Chronic prostatitis Surgical History (Updated 05/04/25 @ 09:14 by Alejandro Serrano MD) S/P spinal surgery "2000" S/P coronary artery stent placement "2006" Family History Father Prostate cancer Stroke Mother Stroke Social History Smoking Status: Former smoker Tobacco Type: Cigarettes packs per day: 20; Second Hand Exposure: No; Do You Dip or Chew Tobacco: No; Hx Alcohol Use: Yes Alcohol type: hard liquor Alcohol Intake Frequency: 2-4 x/Month Hx Substance Use: No Preferred Language: Korean Communication Ability: Effective Buffing Turner And Counter Required: No Beliefs That Will Affect Care: None marital status: / Current Living Situation: Alone and Personal Care Facility How many Children do You have: 3 Feels Safe at Home: Yes Diet: diabetic during the past year weight has: decreased > 10 lbs Assistive Devices: Cane and Glasses Review of Systems Review of Systems: as per HPI Physical Exam Physical Exam: Constitutional: no acute distress HEENT: NCAT, no conjunctival injection CV: +irregularly irregular rhythm, mildly tachycardic, extremities well- perfused, no LE edema Resp: diminished breath sounds in left lung base, o/w clear to auscultation, no increased work of breathing GI: soft, nontender, no rigidity, guarding, or rebound tenderness MSK: no gross deformities Skin: warm, dry, no rash appreciated Neuro: alert, oriented, no focal neurologic deficit appreciated Results & Data Results & Data Vital Signs (Past 12 Hours) Vital Signs Temp Pulse Resp BP Pulse Ox O2 Del Method 05/03/25 21:00 103 H 23 147/104 H 90 05/03/25 20:31 94 H 24 133/88 96 05/03/25 20:01 95 H 22 136/101 H 96 05/03/25 19:31 114 H 22 148/102 H 94 05/03/25 19:23 96 H 22 127/84 90 05/03/25 18:51 93 05/03/25 18:42 92 05/03/25 18:30 96 H 22 92 05/03/25 18:30 123/97 05/03/25 18:30 123/97 05/03/25 18:00 117/76 05/03/25 18:00 117/76 05/03/25 17:58 105/66 05/03/25 17:57 106 H 22 94 05/03/25 17:51 96 H 05/03/25 16:37 98 Room Air 05/03/25 16:33 37.2 C 98 H 16 102/69 94 Supervising Physician Co-Signing Physician Notes Attending addendum: I have physically seen this patient, have supervised the medical residents activities, and agree with the H&P unless as otherwise noted. Assessment and Plan: The patient is a 79-year-old male with past medical history including CAD status post PCI in 2006, permanent atrial fibrillation, CKD stage III, COPD, diabetes mellitus type 2, hypertension, hyperlipidemia, APRYL on CPAP, GERD and BRYCE. He presents to the emergency department with persistent dyspnea on exertion over the past few weeks. He was told he had a chest x-ray with fluid in his lungs. Germán reports that he had a CT scan with possible pericarditis, and referred him to the ED for assessment. Dyspnea on exertion/bilateral pleural effusions left greater than right/pericard ial effusion- CT scan as noted Patient with symptoms over the past 3 weeks, unclear if viral prodrome. Trial of furosemide 20 milligrams IV x 1 this evening and further assess need based on response The patient will be admitted to telemetry for serial cardiac enzymes, serial EKG's, cardiac rhythm monitoring and a 2-D echocardiogram with Dopplers. CAD/hypertension/atrial fibrillation- Continue aspirin, Eliquis, Ismo, Jardiance, lisinopril and metoprolol succinate. COPD- Continue maintenance inhaler DuoNebs every 2 hours as needed Diabetes mellitus- Hold home metformin and Jardiance Lantus 15 units subcu every morning Placed on Accu-Cheks with NovoLog SSI Obstructive sleep apnea- CPAP at bedtime BPH- Continue alfuzosin and finasteride GERD- Pantoprazole daily BRYCE- Continue sertraline Resident Activity Tracking Resident Involvement: Resident Care Provided Care Provided: Adult [facility] Medicine
[2025-05-03] MEDS ORDERED: GLUCOSE 40% GEL 15 GM TUBE PO PRN (23:52)
[2025-05-03] MEDS ORDERED: DEXTROSE 50% 50 ML SYRINGE IV PRN (23:52)
[2025-05-03] MEDS ORDERED: MELATONIN 3 MG TAB PO PRN (23:52)
[2025-05-03] MEDS ORDERED: ACETAMINOPHEN 325 MG TAB PO PRN (23:52)
[2025-05-03] MEDS ORDERED: NITROGLYCERIN SL 0.4 MG/TAB TAB SL PRN (23:52)
[2025-05-03] MEDS ORDERED: ALBUT/IPRATROP 3MG/0.5MG NEB 3 ML VIAL NEB PRN (23:52)
[2025-05-03] MEDS ORDERED: CARBOHYDRATES FOR HYPOGLYCEMIA PO PRN (23:52)
[2025-05-03] MEDS ORDERED: GLUCOSE 10 TAB/TUBE PO PRN (23:52)
[2025-05-03] MEDS ORDERED: GLUCAGON FOR INJ 1 MG VIAL SQ PRN (23:52)
[2025-05-03] MEDS ORDERED: ONDANSETRON INJ 2 MG/ML 2 ML VIAL IV PRN (23:52)
[2025-05-04] MEDS: FUROSEMIDE INJ 20 MG/2 ML VIAL IV ONE ×2 (00:31→15:25)
[2025-05-04] MEDS: APIXABAN 5 MG TABLET PO SCH (00:31)
[2025-05-04] MEDS: METOPROLOL SUCC 50MG EXT REL TAB PO SCH (00:31)
[2025-05-04 05:51] LABS: Alanine Aminotransferase 15.0 U/L (7-52); Albumin Globulin Ratio 1.3 (0.9-2); Albumin Level 4.0 gm/dl (3.4-5.0); Alkaline Phosphatase 67.0 U/L (34-104); Anion Gap 10.0 (3-11); Bilirubin,Total 1.2 mg/dl (0.2-1.0); Blood Urea Nitrogen 22.0 mg/dl (6-23); Calcium 9.2 mg/dl (8.6-10.3); Carbon Dioxide 24.0 mmol/L (21-32); Chloride 103.0 mmol/L (98-107); Creatinine Clr Calc Pharmacy 51.5 ml/min; Globulin 3.2 gm/dl (2.5-4.0); Glucose 144.0 mg/dl (70-99(Fasting)); Potassium 4.4 mmol/L (3.5-5.1); Sodium 137.0 mmol/L (136-145); Total Protein 7.2 gm/dl (6.0-8.3)
--- NOTE | 2025-05-04 06:54 | Hospitalist Progress Note ---
Date of Service May 04, 2025 Assessment & Plan (1) Bilateral pleural effusion: (2) Dyspnea: (3) Permanent atrial fibrillation: (4) APRYL on CPAP: (5) Anxiety: (6) Diabetes mellitus, type II: (7) CKD (chronic kidney disease), stage III: (8) HLD (hyperlipidemia): (9) HTN (hypertension): (10) GERD (gastroesophageal reflux disease): (11) Sleep apnea: (12) CAD (coronary artery disease): (13) Pericardial effusion: Plan 79 y/o male with PMHx that includes CAD s/p PCI in 2006, permanent A-fib, CKD III, COPD, T2DM, HTN, HLD, APRYL on CPAP, GERD, and BRYCE presents with MCDUFFIE x3 weeks: #Dyspnea of exertion // #Bilateral pleural effusion L>R // #Pericardial effusion: -CT chest notable for small pericardial effusion and moderate left/small right pleural effusion -POCUS notable for pericardial effusion and left pleural effusion -No obvious acute infectious precipitant with absence of leukocytosis or fever -CRP elevated, BNP 218 -TTE: notable for small pericardial effusion without tamponade, pleural effusion, EF 55-60% -s/p IV Lasix 20mg x 1 -will give another 20mg Lasix -Consider pulmonology consult, particularly if non-responsive to trial of diuresis -AM CMP #CKD III: Cr 1.68->1.53 Check AM labs, monitor response to diuresis #A-fib: continue metoprolol, eliquis #COPD: continue tiotropium maintenance inhaler Duoneb PRN for wheezing/shortness of breath #CAD // #HLD // #HTN: continue aspirin, atorvastatin, ezetimibe, imdur, lisinopril #APRYL: CPAP HS #T2DM: Hold home metformin and jardiance BSG checks ACHS Lantus 15U QAM SSI #GERD: continue daily PPI #BRYCE: continue sertraline #BPH: continue alfuzosin, finasteride VTE ppx: Eliquis Admission and Anticipated Discharge Date Admission Date: May 03, 2025 Supervising Physician Co-Signing Physician Notes Attending attestation Pt seen and examined in concert with Dr. Rojas. In agreement with the documented findings as noted in the resident documentation with any exceptions or additions as noted here. Patient endorses minimal symptoms at rest, predominance of symptoms with light activity or bending over which is unchanged from presentation. Without significant cough, lightheadedness, chest pain, n/v/d/c. VS as noted. On examination, S1/S2 nl RRR no MCG. coarse BS bilateral bases, worse on the left. Abd NT/ND BS+ve Acute hypoxic respiratory failure - O2 per protocol, address underlying causes as below. Bilateral pleural effusion with EF as noted - HFpEF vs. pulmonary cause - repeat diuretic course and monitor I/O/weight closely. low threshold for pulm consult without improvement. Trend daily BMP CKDIII - Cr gradually decreasing. Continue to monitor. COPD - no apparent exacerbation at this time - continue maintenance medications h/o CAD w/ hyperlipidemia - continue ASA, statin therapy, imdur Else see resident documentation as noted. Subjective No overnight events. Pt seen and examined at bedside. He stated he feels about the same as well he came in. Pt stated he tolerated the diuretic well but did not notice much improvement of his dyspnea. He states his sx mainly occur when he is exertional or when bending over. He denies fever, chills, CP, abdominal pain, or trouble urinating. Review of Systems Review of Systems: as per HPI Physical Exam Physical Exam: GA: well groomed, well nourished in no apparent distress. AAOx3 HEENT: head normocephalic, atraumatic. EOMI RESP: normal respiratory effort. no tachypnea. rales noted in left base, rest of lungs sounded clear CARDIOVASCULAR: S1 and S2 heard. No murmurs, rubs, or gallops. Radial pulses 2+ irregularly irregular. GI: Normoactive bowel sounds, no tenderness or masses felt to palpation MSK: no gross abnormalities or focal deficits SKIN: warm, dry, no edema PSYCH: appropriate mood and affect NEURO: no focal deficits. speech fluent US: heart:small pericardial effusion noted, lung: pleural effusion noted in left lower lobe Results & Data Results & Data Vital Signs (Past 12 Hours) Vital Signs Temp Pulse Pulse Resp BP BP Pulse Ox 05/04/25 05:52 36.8 C 101 H 21 113/86 94 05/04/25 00:36 36.8 C 110 H 20 131/72 95 05/03/25 23:41 105 H 05/03/25 23:21 36.7 C 102 H 19 129/91 92 05/03/25 22:30 92 05/03/25 22:30 93 H 22 130/76 92 05/03/25 22:00 116 H 22 127/103 H 93 05/03/25 21:51 91 05/03/25 21:42 92 05/03/25 21:30 94 05/03/25 21:30 113 H 22 147/114 H 93 05/03/25 21:00 103 H 23 147/104 H 90 05/03/25 20:31 94 H 24 133/88 96 05/03/25 20:01 95 H 22 136/101 H 96 05/03/25 19:31 114 H 22 148/102 H 94 05/03/25 19:23 96 H 22 127/84 90 O2 Del Method 05/04/25 05:52 CPAP 05/04/25 00:36 CPAP 05/03/25 23:41 05/03/25 23:21 Room Air 05/03/25 22:30 05/03/25 22:30 05/03/25 22:00 05/03/25 21:51 05/03/25 21:42 05/03/25 21:30 05/03/25 21:30 05/03/25 21:00 05/03/25 20:31 05/03/25 20:01 05/03/25 19:31 05/03/25 19:23 Resident Activity Tracking Resident Involvement: Resident Care Provided Care Provided: Adult Hospital Medicine
[2025-05-04] MEDS: INSULIN ASPART PER UNIT CHARGE SC SCH (08:22)
[2025-05-04] MEDS: LANTUS PER UNIT CHARGE SQ SCH (08:23)
[2025-05-04] MEDS: ASPIRIN 81 MG ECTAB PO SCH (08:24)
[2025-05-04] MEDS: ISOSORBIDE MONO EXTENDED REL 60 MG TABCR PO SCH (08:24)
[2025-05-04] MEDS: EZETIMIBE 10 MG TAB PO SCH (08:24)
[2025-05-04] MEDS: ATORVASTATIN 40 MG TAB PO SCH (08:24)
[2025-05-04] MEDS: CYANOCOBALAMIN (B-12) 500 MCG TABLET PO SCH (08:25)
[2025-05-04] MEDS: FINASTERIDE 5 MG TAB PO SCH (08:25)
[2025-05-04] MEDS: UMECLIDINIUM BROMIDE 62.5MCG/BLISTER 7 PUFFS/INHALER INH SCH (08:25)
[2025-05-04] MEDS: TAMSULOSIN HCL 0.4 MG CAP PO SCH (08:25)
[2025-05-04] MEDS ORDERED: NON-FORMULARY MEDICATION (Coenzyme Q10 100 mg Capsule) PO SCH (09:00)
--- NOTE | 2025-05-04 12:11 | XCELERA ---
[id number] \\[id number]
--- NOTE | 2025-05-04 19:40 | Billing Data ---
Date of Service May 04, 2025 Coding Level of Care Code 57488 INT INP/OBS CARE
[2025-05-04] MEDS: SERTRALINE HCL 100 MG TABLET PO SCH (20:26)
[2025-05-04] MEDS: POLYETHYLENE (MIRALAX) 17 GM PACK PO PRN (20:43)
[2025-05-05 06:14] LABS: Hematocrit (blood only) 37.4 % (42.0-52.0); Hemoglobin 12.4 g/dL (14.0-18.0); Immature Granulocytes # (auto) 0.06 K/uL (0.01-0.20); Immature Granulocytes % (auto) 0.7 %; Mean Corpuscular Hemoglobin 29.4 pg (25.0-34.0); Mean Corpuscular Volume 88.6 fL (80.0-100.0); Platelet Count 284 K/uL (130-400); RDW Standard Deviation 44.0 fL (36.4-46.3); Red Blood Count 4.22 M/uL (4.70-6.10); White Blood Count 8.44 K/ul (4.8-10.8)
[2025-05-05 06:47] LABS: Anion Gap 12.0 (3-11); Blood Urea Nitrogen 27.0 mg/dl (6-23); Calcium 9.1 mg/dl (8.6-10.3); Carbon Dioxide 22.0 mmol/L (21-32); Chloride 103.0 mmol/L (98-107); Creatinine Clr Calc Pharmacy 52.8 ml/min; Potassium 4.2 mmol/L (3.5-5.1); Sodium 137.0 mmol/L (136-145)
[2025-05-05] MEDS: FUROSEMIDE INJ 20 MG/2 ML VIAL IV ONE (09:55)
--- NOTE | 2025-05-05 11:19 | Hospitalist Progress Note ---
Date of Service May 05, 2025 Assessment & Plan (1) Bilateral pleural effusion: (2) Dyspnea: (3) Permanent atrial fibrillation: (4) APRYL on CPAP: (5) Anxiety: (6) Diabetes mellitus, type II: (7) CKD (chronic kidney disease), stage III: (8) HLD (hyperlipidemia): (9) HTN (hypertension): (10) GERD (gastroesophageal reflux disease): (11) Sleep apnea: (12) CAD (coronary artery disease): (13) Pericardial effusion: Plan 79 y/o male with PMHx that includes CAD s/p PCI in 2006, permanent A-fib, CKD III, COPD, T2DM, HTN, HLD, APRYL on CPAP, GERD, and BRYCE presents with MCDUFFIE x3 weeks: #Dyspnea of exertion // #Bilateral pleural effusion L>R // #Pericardial effusion: -CT chest notable for small pericardial effusion and moderate left/small right pleural effusion -POCUS notable for pericardial effusion and left pleural effusion -No obvious acute infectious precipitant with absence of leukocytosis or fever -CRP elevated, BNP 218 -TTE: notable for small pericardial effusion without tamponade, pleural effusion, EF 55-60% -s/p IV Lasix 20mg x 2 -Gave another 20mg Lasix this morning on 05/05/25 -Consider pulmonology consult, particularly if non-responsive to trial of diuresis. Most likely will have patient follow-up for thoracentesis outpatient. -AM CMP -Ordered PT and OT consult to monitor for any exertional dyspnea. #CKD III: Cr 1.68->1.53->1.47 Check AM labs, monitor response to diuresis #A-fib: continue metoprolol, eliquis #COPD: continue tiotropium maintenance inhaler Duoneb PRN for wheezing/shortness of breath #CAD // #HLD // #HTN: continue aspirin, atorvastatin, ezetimibe, imdur, lisinopril #APRYL: CPAP HS #T2DM: Hold home metformin and jardiance BSG checks ACHS Lantus 15U QAM SSI #GERD: continue daily PPI #BRYCE: continue sertraline #BPH: continue alfuzosin, finasteride VTE ppx: Eliquis Admission and Anticipated Discharge Date Admission Date: May 03, 2025 Supervising Physician Co-Signing Physician Notes Attending attestation Pt seen and examined in concert with Dr. Mcgill. In agreement with the documented findings as noted in the resident documentation with any exceptions or additions as noted here. Able to spontaneously lay flat in bed without symptoms and tolerating short bursts of activity in room without symptoms, which is already an improvement. Open to working with PT for assessment of ADL/activity tolerance. VS as noted. On examination, S1/S2 nl RRR no MCG. Decreased breath sounds as bilateral bases with some crackles appreciated at base c/w effusions. Abd NT/ND BS+ve Dyspnea on exertion in the setting of b/l pleural effusions, pericardial effusion - improving w/ diuresis, TTE as noted. Trend BMP. Low threshold for pulm consult if symptoms on activity with PT have not improved. Repeat diuresis today. CAD - stable, continue secondary prevention and BP management COPD - stable, continue management as noted CKDIII - Cr 1.47 - continue to trend while inpatient tommy w/ ongoing diuresis Else see resident documentation as noted. Subjective Patient reports that he is feeling good today. States that he slept and has been eating well. He says he is urinating. Denies shortness of breath at rest, chest pain, abdominal pain, and N/V/D. Review of Systems Review of Systems: as per HPI Physical Exam Constitutional: WD/WN, vitals as above Eyes: + anicteric sclerae and EOM intact bilat erally Respiratory: normal respiratory effort, lungs clear to auscultation Cardiovascular: Extremities: no edema On auscultation heart sounds were faint. Skin: no rashes, warm and dry Psychiatric: Eye Contact: good eye contact Speech: normal rate/rhythm/volume of speech Thought Process: goal directed thought process and linear/logical thought process Results & Data Results & Data Vital Signs (Past 12 Hours) Vital Signs Temp Pulse Pulse Resp BP Pulse Ox O2 Del Method 05/05/25 07:51 36.6 C 91 H 18 103/72 94 Room Air 05/05/25 06:14 93 H 05/05/25 02:46 36.6 C 80 18 114/75 92 Room Air, CPAP 05/04/25 23:49 93 H Laboratory Results 05/05/25 05/05/25 05/04/25 Range/Units 08:18 05:38 20:13 WBC 8.44 (4.8-10.8) K/ul RBC 4.22 L (4.70-6.10) M/uL Hgb 12.4 L (14.0-18.0) g/dL Hct 37.4 L (42.0-52.0) % MCV 88.6 (80.0-100.0) fL MCH 29.4 (25.0-34.0) pg MCHC 33.2 (32.0-36.0) g/dL RDW Std Deviation 44.0 (36.4-46.3) fL RDW Coeff of [place] 13.5 (11.5-14.5) % Plt Count 284 (130-400) K/uL MPV 9.6 (9.4-12.4) fL Immature Gran % (Auto) 0.7 % Neut % (Auto) 62.3 % Lymph % (Auto) 12.8 % [place] % (Auto) 20.0 % Eos % (Auto) 3.7 % Baso % (Auto) 0.5 % Neut # (Auto) 5.26 (1.40-6.50) K/uL Lymph # (Auto) 1.08 L (1.20-3.40) K/uL [place] # (Auto) 1.69 H (0.11-0.59) K/uL Eos # (Auto) 0.31 (0.00-0.50) K/uL Baso # (Auto) 0.04 (0.00-0.20) K/uL Immature Gran # (Auto) 0.06 (0.01-0.20) K/uL Sodium 137 (136-145) mmol/L Potassium 4.2 (3.5-5.1) mmol/L Chloride 103 (98-107) mmol/L Carbon Dioxide 22 (21-32) mmol/L Anion Gap 12 H (3-11) BUN 27 H (6-23) mg/dl Creatinine 1.47 H (0.6-1.4) mg/dl Est Cr Clr Drug Dosing 52.8 ml/min eGFR 48.52 POC Glucose 128 H 116 H (70-99) mg/dl Fasting Glucose 122 H (70-99) mg/dl Calcium 9.1 (8.6-10.3) mg/dl 05/04/25 05/04/25 Range/Units 16:52 11:30 WBC (4.8-10.8) K/ul RBC (4.70-6.10) M/uL Hgb (14.0-18.0) g/dL Hct (42.0-52.0) % MCV (80.0-100.0) fL MCH (25.0-34.0) pg MCHC (32.0-36.0) g/dL RDW Std Deviation (36.4-46.3) fL RDW Coeff of [place] (11.5-14.5) % Plt Count (130-400) K/uL MPV (9.4-12.4) fL Immature Gran % (Auto) % Neut % (Auto) % Lymph % (Auto) % [place] % (Auto) % Eos % (Auto) % Baso % (Auto) % Neut # (Auto) (1.40-6.50) K/uL Lymph # (Auto) (1.20-3.40) K/uL [place] # (Auto) (0.11-0.59) K/uL Eos # (Auto) (0.00-0.50) K/uL Baso # (Auto) (0.00-0.20) K/uL Immature Gran # (Auto) (0.01-0.20) K/uL Sodium (136-145) mmol/L Potassium (3.5-5.1) mmol/L Chloride (98-107) mmol/L Carbon Dioxide (21-32) mmol/L Anion Gap (3-11) BUN (6-23) mg/dl Creatinine (0.6-1.4) mg/dl Est Cr Clr Drug Dosing ml/min eGFR POC Glucose 118 H 100 H (70-99) mg/dl Fasting Glucose (70-99) mg/dl Calcium (8.6-10.3) mg/dl
--- NOTE | 2025-05-06 06:48 | Hospitalist Progress Note ---
Date of Service May 06, 2025 Assessment & Plan (1) Bilateral pleural effusion: (2) Dyspnea: (3) Permanent atrial fibrillation: (4) APRYL on CPAP: (5) Anxiety: (6) Diabetes mellitus, type II: (7) CKD (chronic kidney disease), stage III: (8) HLD (hyperlipidemia): (9) HTN (hypertension): (10) GERD (gastroesophageal reflux disease): (11) Sleep apnea: (12) CAD (coronary artery disease): (13) Pericardial effusion: (14) Acute exacerbation of chronic heart failure: Plan 79 y/o male with PMHx that includes CAD s/p PCI in 2006, permanent A-fib, CKD III, COPD, T2DM, HTN, HLD, APRYL on CPAP, GERD, and BRYCE presents with MCDUFFIE x3 weeks: #Dyspnea of exertion // #Bilateral pleural effusion L>R // #Pericardial effusion: -CT chest notable for small pericardial effusion and moderate left/small right pleural effusion -POCUS notable for pericardial effusion and left pleural effusion -No obvious acute infectious precipitant with absence of leukocytosis or fever -CRP elevated, BNP 218 -TTE: notable for small pericardial effusion without tamponade, pleural effusion, EF 55-60% -s/p IV Lasix 20mg x 2 -Gave another 20mg Lasix this morning on 05/05/25 -Consider pulmonology consult, particularly if non-responsive to trial of diuresis. Most likely will have patient follow-up for thoracentesis outpatient. -AM CMP -Ordered PT and OT consult to monitor for any exertional dyspnea. #CKD III: Cr 1.68->1.53->1.47 Check AM labs, monitor response to diuresis #A-fib: continue metoprolol, eliquis #COPD: continue tiotropium maintenance inhaler Duoneb PRN for wheezing/shortness of breath #CAD // #HLD // #HTN: continue aspirin, atorvastatin, ezetimibe, imdur, lisinopril #APRYL: CPAP HS #T2DM: Hold home metformin and jardiance BSG checks ACHS Lantus 15U QAM SSI #GERD: continue daily PPI #BRYCE: continue sertraline #BPH: continue alfuzosin, finasteride VTE ppx: Eliquis Admission and Anticipated Discharge Date Admission Date: May 03, 2025 Review of Systems Review of Systems: as per HPI Physical Exam Physical Exam: GA: well groomed, well nourished in no apparent distress. AAOx3 HEENT: head normocephalic, atraumatic. EOMI RESP: normal respiratory effort. no tachypnea. rales noted in left base, rest of lungs sounded clear CARDIOVASCULAR: S1 and S2 heard. No murmurs, rubs, or gallops. Radial pulses 2+ irregularly irregular. GI: Normoactive bowel sounds, no tenderness or masses felt to palpation MSK: no gross abnormalities or focal deficits SKIN: warm, dry, no edema PSYCH: appropriate mood and affect NEURO: no focal deficits. speech fluent US: heart:small pericardial effusion noted, lung: pleural effusion noted in left lower lobe Results & Data Results & Data Vital Signs (Past 12 Hours) Vital Signs Temp Pulse Pulse Resp BP Pulse Ox O2 Del Method 05/06/25 02:31 89 18 115/79 93 Room Air, CPAP 05/05/25 22:57 36.6 C 94 H 18 104/65 94 Room Air, CPAP 05/05/25 21:48 103 H 05/05/25 19:30 36.6 C 95 H 18 110/77 93 Room Air, CPAP
[2025-05-06 07:12] LABS: Hematocrit (blood only) 38.3 % (42.0-52.0); Hemoglobin 12.6 g/dL (14.0-18.0); Immature Granulocytes # (auto) 0.09 K/uL (0.01-0.20); Immature Granulocytes % (auto) 1.0 %; Mean Corpuscular Hemoglobin 29.0 pg (25.0-34.0); Mean Corpuscular Volume 88.2 fL (80.0-100.0); Platelet Count 275 K/uL (130-400); RDW Standard Deviation 43.8 fL (36.4-46.3); Red Blood Count 4.34 M/uL (4.70-6.10); White Blood Count 9.17 K/ul (4.8-10.8)
[2025-05-06 07:38] LABS: Anion Gap 10.0 (3-11); Blood Urea Nitrogen 33.0 mg/dl (6-23); Calcium 9.0 mg/dl (8.6-10.3); Carbon Dioxide 24.0 mmol/L (21-32); Chloride 102.0 mmol/L (98-107); Creatinine Clr Calc Pharmacy 47.1 ml/min; Glucose 124.0 mg/dl (70-99(Fasting)); Potassium 4.2 mmol/L (3.5-5.1); Sodium 136.0 mmol/L (136-145)
[2025-05-06 11:25] VITALS: PULSE 78; RESP 20; TEMP 97.5; O2SAT 93
[2025-05-06 13:10] VITALS: BP 115/79
--- NOTE | 2025-05-06 14:09 | Discharge Summary ---
Date of Service May 06, 2025 Admission HPI Per Admitting Provider 79 y/o male with PMHx that includes CAD s/p PCI in 2006, permanent A-fib, CKD III, COPD, T2DM, HTN, HLD, APRYL on CPAP, GERD, and BRYCE presents with MCDUFFIE x3 weeks. Sx started 3 weeks ago, notes that onset of dyspnea coincided with a feeling of abdominal pressure. Denies associated distention or changes in weight. Denies LE edema. Patient was evaluated in outpatient setting, Breo Ellipta added to inhaler regimen with no improvement. Patient states that he can typically ambulate at least 50 yards before becoming dyspneic, now can only take about 10 steps. Only other exacerbating situation is when he bends over to tie his shoes. Denies previous dx of HF or h/o diuretic use, last TTE in 2021 with EF 55-60%, no noted diastolic dysfunction. Denies orthopnea, chest pain, shortness of breath at rest, palpitations. Denies recent illness. Denies fevers/chills, night sweats. He lost weight with Trulicity, o/w no unintentional weight loss. Outpatient CT earlier today was notable for small pericardial effusion and moderate left/small right pleural effusion. Principal Diagnosis CHF exacerbation Discharge Exam GA: well groomed, well nourished in no apparent distress. AAOx3 HEENT: head normocephalic, atraumatic. EOMI RESP: normal respiratory effort. no tachypnea. normal breath sounds B/L CARDIOVASCULAR: S1 and S2 heard. No murmurs, rubs, or gallops. Radial pulses 2+ irregularly irregular. GI: Normoactive bowel sounds, no tenderness or masses felt to palpation MSK: no gross abnormalities or focal deficits SKIN: warm, dry, no edema PSYCH: appropriate mood and affect NEURO: no focal deficits. speech fluent Discharge Data Allergies Allergy/AdvReac Type Severity Reaction Status Date / Time Quinolones Allergy Severe difficultly Verified 05/03/25 18:43 breathing Sulfa (Sulfonamide Allergy Intermediate hives and Verified 05/03/25 18:43 Antibiotics) throat swelling ciprofloxacin AdvReac Intermediate Depression Verified 05/03/25 18:43 Consultations 05/03/25 19:13 ED Decision to Admit Stat Hospital Course (1) Acute exacerbation of chronic heart failure: (2) Bilateral pleural effusion: (3) Dyspnea: (4) Permanent atrial fibrillation: (5) APRYL on CPAP: (6) Anxiety: (7) Diabetes mellitus, type II: (8) CKD (chronic kidney disease), stage III: (9) HLD (hyperlipidemia): (10) HTN (hypertension): (11) GERD (gastroesophageal reflux disease): (12) Sleep apnea: (13) CAD (coronary artery disease): (14) Pericardial effusion: Plan 79 y/o male with PMHx that includes CAD s/p PCI in 2006, permanent A-fib, CKD III, COPD, T2DM, HTN, HLD, APRYL on CPAP, GERD, and BRYCE presents with MCDUFFIE x3 weeks: #Dyspnea of exertion // #CHF Exacerbation #Bilateral pleural effusion L>R // #Pericardial effusion: -CT chest notable for small pericardial effusion and moderate left/small right pleural effusion -POCUS notable for pericardial effusion and left pleural effusion -No obvious acute infectious precipitant with absence of leukocytosis or fever -CRP elevated, BNP 218 -TTE: notable for small pericardial effusion without tamponade, pleural effusion, EF 55-60% -s/p IV Lasix 20mg x 3 -f/u outpatient with PCP in 1-2 weeks -continue metoprolol, Jardiance, lisinopril -encourage low sodium diet (<2g/daily) #CKD III: Cr 1.68->1.53->1.47->1.62 -likely related to diuresis #A-fib: continue metoprolol, eliquis #COPD: continue home inhalers #CAD // #HLD // #HTN: continue aspirin, atorvastatin, ezetimibe, imdur, lisinopril #APRYL: CPAP HS #T2DM: continue metformin and jardiance #GERD: continue daily PPI #BRYCE: continue sertraline #BPH: continue alfuzosin, finasteride Total Time Total Time Spent Total Time Spent (In Minutes): <30 Discharge Plan Discharge Items Patient Disposition: Home - Self-Care Reason For Visit: DYSPNEA Discharge Diagnosis: Dyspnea Condition on Discharge: Fair Activity: Resume your previous activity Non-emergency contact: Primary Care Provider Call non-emergency contact if: your symptoms worsen, you have a fever and your temperature is above 101.5 Follow-up/Referrals: Ady Pacheco MD [Primary Care Provider] - (Please make a follow up appointment with your primary care provider in 1-2 weeks.) Diet: Carb Consistent or DM2 and Low Sodium (2gm) Addtl Attending Provider Instructions: You were at the hospital due to trouble breathing. In order to figure out why you had trouble breathing we provided imaging, an echocardiogram (ultrasound of your heart), and a chest CT. On the Echo they found some fluid around your heart but that it wasn't the cause of your trouble breathing. On the chest CT they found a moderate amount of fluid around your left lung, and a small amount of fluid around your right lung. They found an enlarged lymph node which is most likely benign. It also found a moderate amount of plaque in your coronary arteries. They did NOT find any pulmonary nodules or pulmonary embolism. We also gave you lasix to help you urinate to get rid of excess fluid. You felt better each day and had no symptoms of shortness of breath, or chest pain. It is suspected that your symptoms were caused by an exacerbation of congestive heart failure. No changes were made to your medications, please continue them as previously prescribed. You should adhere to a low sodium (less than 2 grams per day) diet and avoid prepacked foods as they contain high amounts of sodium. Please follow-up with your PCP within the next two weeks to monitor your breathing. Pending Studies at Discharge: No Stand-Alone Forms: [facility], Smoking Cessation Medications and DC Order Prescriptions: Continued finasteride 5 mg tablet 5 mg PO DAILY omeprazole 20 mg capsule,delayed release(DR/EC) 20 mg PO DAILY isosorbide mononitrate 60 mg tablet extended release 24 hr 60 mg PO DAILY fluocinonide 0.05 % cream 1 applic topical BID PRN (Reason: APPLY TO SCALP NEEDED) atorvastatin 80 mg tablet 80 mg PO DAILY alfuzosin 10 mg tablet extended release 24 hr 10 mg PO DAILY Rx Instructions: administer after the same meal each day aspirin [Adult Aspirin Regimen] 81 mg tablet,delayed release (DR/EC) 81 mg PO DAILY nitroglycerin 0.4 mg tablet, sublingual 0.4 mg sublingual Q5M PRN (Reason: Chest Pain) Rx Instructions: do not exceed 3 doses per episode Eliquis 5 mg tablet 5 mg PO BID cyanocobalamin (vitamin B-12) 1,000 mcg Tablet 1,000 mcg PO DAILY Cyndiity 4.5 mg/0.5 mL Pen Injector 4.5 mg SUBCUT WK lisinopril 2.5 mg tablet 2.5 mg PO DAILY Jardiance 25 mg tablet 25 mg PO DAILY metoprolol succinate 50 mg Tablet Extended Release 24 Hr 50 mg PO BID Qty: 60 0RF sertraline 100 mg tablet 100 mg PO HS metformin 500 mg tablet extended release 24 hr 500 mg PO BID ezetimibe 10 mg tablet 10 mg PO QAM coenzyme Q10 100 mg Capsule 100 mg PO BID insulin glargine [Basaglar KwikPen U-100 Insulin] 100 unit/mL (3 mL) insulin pen 20 unit SUBCUT QAM Discharge Orders: Discharge Order (Routine); Ordered 05/06/25 Ordered By: Alejandro Rojas Admission Data Admit Date/Time: 05/03/25 21:16 Attending Provider: Charbel Hodge Admit Provider: Serg Barakat Primary Care Provider: Ady Pacheco Other Providers: Serg Barakat Other Interventions: Discharge Summary Assessment (RN) Last Done: 05/06/25 13:09 Supervising Physician Co-Signing Physician Notes I personally examined the patient and verified all martinez points of history and exam, discussed case, and agree with decision making with Dr Rojas Feeling better. Walked the length of the unit with physical therapy with no dyspnea and was on room air. Would very much like to go home. Vitals noted, in general he is awake and alert pleasant no distress. HEENT normocephalic atraumatic mucous membranes moist. Breathing unlabored no accessory muscle use good effort. Skin without rashes pallor or icterus. Dyspnea on exertiongiven rales initially and not now, given improvement with diuresissuspect acute on chronic diastolic CHF (acute on chronic HFpEF) improved with diuresis. Safe/stable for home. Educated on sodium. Close and ongoing outpatient follow-up. Otherwise as above. anticoagulated Resident Activity Tracking Resident Involvement: Resident Care Provided Care Provided: Adult Hospital Medicine
--- NOTE | 2025-05-06 17:12 | Billing Data ---
Date of Service May 06, 2025 Coding Level of Care Code 18807 IN/OBS DISCH 30 MIN/LESS
--- NOTE | 2025-05-06 22:04 | Electrocardiogram Report ---
Test Reason : Blood Pressure : */* mmHG Vent. Rate : 105 BPM Atrial Rate : * BPM P-R Int : * ms QRS Dur : 78 ms QT Int : 282 ms P-R-T Axes : * 45 233 degrees QTcB Int : 372 ms Atrial fibrillation with rapid ventricular response Low voltage QRS Anteroseptal infarct (cited on or before 19-Jun-2022) Nonspecific T wave abnormality Abnormal ECG When compared with ECG of 21-Jun-2022 06:07, Nonspecific T wave abnormality, worse in Inferior leads Nonspecific T wave abnormality now evident in Lateral leads Confirmed by Sb Daley ([id number]) on 05/06/2025 10:04:21 PM Referred By: REFERRED SELF Confirmed By: Sb Daley
== END 2025-05-06 15:16 | disposition home or self-care (01) | DRG 291 ==
LOC: ED 16:27 → EDINP 21:16 → SUATTDRO 21:16 → 2N 23:53